=== PATIENT | male | born 1965 | race Caucasian/White ===

== ENCOUNTER 2018-01-31 09:35 | Emergency (ER) | payer BC ==
[2018-01-31 09:51] VITALS: RESP 18; TEMP 98.1
[2018-01-31] MEDS ORDERED: SODIUM CHLORIDE 0.9% 1,000 ML IV STA (10:26)
[2018-01-31] MEDS ORDERED: FAMOTIDINE 20 MG/2 ML VIAL IV STA (10:26)
[2018-01-31] MEDS ORDERED: ONDANSETRON 4 MG/2 ML VIAL IVP STA (10:26)
--- NOTE | 2018-01-31 10:28 | ED ---
General Adult HPI - General Chief complaint: Abdominal Pain Stated complaint: Vomiting Time Seen by Provider: 01/31/18 10:21 Source: patient, RN notes reviewed Mode of arrival: ambulatory Limitations: no limitations - History of Present Illness Initial comments: Patient 52-year-old male presented to the emergency room today with a chief complaint of increased nausea vomiting over last 3 days. Patient does admit to some abdominal pain throughout the abdomen from vomiting. He does admit that he has abdominal pain off and on over the last 6 months. States she's lost 12 pounds in approximately last 3 months. Patient does admit that today with vomiting. He saw small amount of blood. Patient states she's not been able to keep anything down the last 3 days. Patient states that at times feels pain radiating to the back. Patient denies any other complaints or symptoms. Patient denies any recent fever, chills, shortness of breath, chest pain, numbness or tingling, dysuria or hematuria, constipation or diarrhea, headaches or visual changes, or any other complaints. - Related Data Previous Rx's Medication Instructions Recorded Famotidine [Pepcid] 20 mg PO BID #20 tablet 01/31/18 Ondansetron Odt [Zofran ODT] 4 mg PO Q8HR PRN #20 tab 01/31/18 Allergies Allergy/AdvReac Type Severity Reaction Status Date / Time No Known Allergies Allergy Unverified 01/31/18 10:30 Review of Systems ROS Statement: Those systems with pertinent positive or pertinent negative responses have been documented in the HPI. ROS Other: All systems not noted in ROS Statement are negative. Past Medical History Past Medical History: No Reported History History of Any Multi-Drug Resistant Organisms: None Reported Past Surgical History: No Surgical Hx Reported Past Psychological History: No Psychological Hx Reported Smoking Status: Current every day smoker Past Alcohol Use History: None Reported Past Drug Use History: Marijuana General Exam - General Exam Comments Initial Comments: General: The patient is awake and alert, in no distress, and does not appear acutely ill. Eye: Pupils are equal, round and reactive to light, extra-ocular movements are intact. No nystagmus. There is normal conjunctiva bilaterally. No signs of icterus. Ears, nose, mouth and throat: There are moist mucous membranes and no oral lesions. Neck: The neck is supple, there is no tenderness or JVD. Cardiovascular: There is a regular rate and rhythm. No murmur, rub or gallop is appreciated. Respiratory: Lungs are clear to auscultation, respirations are non-labored, breath sounds are equal. No wheezes, stridor, rales, or rhonchi. Gastrointestinal: Abdomen soft on palpation. Patient does have tenderness greatest in epigastric with mild tenderness throughout quadrants. No rebound, guarding or CVA tenderness. Musculoskeletal: Normal ROM, no tenderness. Strength 5/5. Sensation intact. Pulses equal bilaterally 2+. Neurological: A&O x 3. CN II-XII intact, There are no obvious motor or sensory deficits. Coordination appears grossly intact. Speech is normal. Skin: Skin is warm and dry and no rashes or lesions are noted. Psychiatric: Cooperative, appropriate mood & affect, normal judgment. Limitations: no limitations Course Vital Signs 01/31/18 09:48 Temperature 98.1 F Pulse Rate 88 Respiratory 18 Rate Blood Pressure 151/91 O2 Sat by Pulse 98 Oximetry Medical Decision Making - Medical Decision Making Patient reexamined at this time shows no signs of distress. Admits that is feeling much better here in the emergency room after Zofran, Pepcid. Patient's labs been reviewed. Patient's CAT scan of the abdomen and pelvis is negative for any acute abnormality. Chest x-rays unremarkable. At this time patient will be discharged on continued on Zofran, Pepcid. He is advised follow-up with them physician and GI. He is advised return here to the emergency room symptoms increase worsen or for any other concerns. - Lab Data Result diagrams: 01/31/18 10:58 01/31/18 10:58 Lab Results 01/31/18 01/31/18 01/31/18 Range/Units 10:58 10:58 12:42 WBC 9.6 (3.8-10.6) k/uL RBC 5.83 (4.30-5.90) m/uL Hgb 17.5 (13.0-17.5) gm/dL Hct 52.1 (39.0-53.0) % MCV 89.3 (80.0-100.0) fL MCH 30.1 (25.0-35.0) pg MCHC 33.6 (31.0-37.0) g/dL RDW 12.5 (11.5-15.5) % Plt Count 227 (150-450) k/uL Neutrophils % 71 % Lymphocytes % 20 % Monocytes % 7 % Eosinophils % 1 % Basophils % 0 % Neutrophils # 6.8 (1.3-7.7) k/uL Lymphocytes # 1.9 (1.0-4.8) k/uL Monocytes # 0.7 (0-1.0) k/uL Eosinophils # 0.1 (0-0.7) k/uL Basophils # 0.0 (0-0.2) k/uL Sodium 139 (137-145) mmol/L Potassium 4.3 (3.5-5.1) mmol/L Chloride 101 (98-107) mmol/L Carbon Dioxide 26 (22-30) mmol/L Anion Gap 12 mmol/L BUN 18 (9-20) mg/dL Creatinine 1.06 (0.66-1.25) mg/dL Est GFR (CKD-EPI)AfAm >90 (>60 ml/min/1.73 sqM) Est GFR (CKD-EPI)NonAf 81 (>60 ml/min/1.73 sqM) Glucose 113 H (74-99) mg/dL Calcium 10.2 (8.4-10.2) mg/dL Total Bilirubin 1.2 (0.2-1.3) mg/dL AST 26 (17-59) U/L ALT 27 (21-72) U/L Alkaline Phosphatase 92 (38-126) U/L Total Protein 7.6 (6.3-8.2) g/dL Albumin 4.8 (3.5-5.0) g/dL Amylase 70 (30-110) U/L Lipase 105 (23-300) U/L Urine Color Yellow Urine Appearance Clear (Clear) Urine pH 7.0 (5.0-8.0) Urine Protein Negative (Negative) Urine Glucose (UA) Negative (Negative) Urine Blood Negative (Negative) Urine Nitrite Negative (Negative) Urine Bilirubin Negative (Negative) Urine Urobilinogen <2.0 (<2.0) mg/dL Ur Leukocyte Esterase Negative (Negative) Disposition Clinical Impression: Abdominal pain Disposition: HOME SELF-CARE Condition: Good Instructions: Abdominal Pain (ED) Additional Instructions: Please use medication as discussed. Please follow-up with GI/family doctor in the next 2 days of symptoms have not improved. Please return to emergency room if the symptoms increase or worsen or for any other concerns. Prescriptions: Famotidine [Pepcid] 20 mg PO BID #20 tablet Ondansetron Odt [Zofran ODT] 4 mg PO Q8HR PRN #20 tab PRN Reason: Nausea Is patient prescribed a controlled substance at d/c from ED?: No Referrals: Tylor Zapata MD [Primary Care Provider] - 1-2 days Jai Mistry MD [STAFF PHYSICIAN] - 1-2 days Time of Disposition: 13:02
[2018-01-31 11:16] LABS: Basophils % (A) 0 %; Eosinophils # (A) 0.1 k/uL (0-0.7); Eosinophils % (A) 1 %; HCT 52.1 % (39.0-53.0); HGB 17.5 gm/dL (13.0-17.5); Lymphocytes # (A) 1.9 k/uL (1.0-4.8); Lymphocytes % (A) 20 %; MCH 30.1 pg (25.0-35.0); MCHC 33.6 g/dL (31.0-37.0); MCV 89.3 fL (80.0-100.0); Mean Platelet Volume 8.3; Monocytes # (A) 0.7 k/uL (0-1.0); Monocytes % (A) 7 %; Neutrophils # (A) 6.8 k/uL (1.3-7.7); Neutrophils % (A) 71 %; Platelet Count 227 k/uL (150-450); RBC 5.83 m/uL (4.30-5.90); RDW 12.5 % (11.5-15.5); WBC 9.6 k/uL (3.8-10.6)
--- NOTE | 2018-01-31 11:19 | XR ---
EXAMINATION TYPE: XR chest 2V DATE OF EXAM: 01/31/2018 COMPARISON: NONE TECHNIQUE: PA and lateral views submitted. HISTORY: Pain FINDINGS: The lungs are clear and there is no pneumothorax, pleural effusion, or focal pneumonia. IMPRESSION: 1. No acute process.
[2018-01-31 11:26] LABS: ALT 27 U/L (21-72); AST 26 U/L (17-59); Albumin 4.8 g/dL (3.5-5.0); Alkaline Phosphatase 92 U/L (38-126); Amylase 70 U/L (30-110); Anion Gap 12 mmol/L; Blood Urea Nitrogen 18 mg/dL (9-20); Calcium 10.2 mg/dL (8.4-10.2); Carbon Dioxide 26 mmol/L (22-30); Chloride 101 mmol/L (98-107); Glucose 113 mg/dL (74-99); Lipase 105 U/L (23-300); Potassium 4.3 mmol/L (3.5-5.1); Sodium 139 mmol/L (137-145); Total Bilirubin 1.2 mg/dL (0.2-1.3); Total Protein 7.6 g/dL (6.3-8.2)
--- NOTE | 2018-01-31 11:57 | CT ---
EXAMINATION TYPE: CT abdomen pelvis w con DATE OF EXAM: 01/31/2018 COMPARISON: None HISTORY: Patient complains of epigastric pain. CT DLP: 368.4 mGycm CONTRAST: CT scan of the abdomen and pelvis is performed without Oral Contrast and with IV Contrast, patient in jected with 100 mL of Isovue 300. FINDINGS: LUNG BASES-: No visible nodule. No infiltrate. LIVER/GB: Mild fatty liver with areas of focal fatty sparing versus underlying hemangioma. No calcif ied gallstones. No space occupying hepatic lesion. Biliary tree is of normal caliber. PANCREAS: No inflammation. No distinct mass. SPLEEN: No splenic enlargement. No lesion seen. ADRENALS: No nodule. No thickening. KIDNEYS/BLADDER: No hydronephrosis. No nephrolithiasis. No distinct renal mass. Urinary bladder g rossly unremarkable. BOWEL: Normal appendix. Normal bowel caliber. No inflammation. GENITAL ORGANS: No gross abnormality. LYMPH NODES: No greater than 1cm abdominal or pelvic lymph nodes are appreciated. AORTA: No significant abnormality. OSSEOUS STRUCTURES: No significant abnormality is seen. OTHER: No significant additional abnormality is seen. IMPRESSION: 1. No acute process identified to account for the patient's symptoms.
[2018-01-31 12:54] LABS: Appearance,Urine Clear (Clear); Bilirubin,Urine Negative (Negative); Blood,Urine Negative (Negative); Color,Urine Yellow; Glucose,Urine (UA) Negative (Negative); Ketones,Urine 2+ (Negative); Leukocyte Esterase,Urine Negative (Negative); Nitrite,Urine Negative (Negative); Protein,Urine Negative (Negative); Urobilinogen,Urine <2.0 mg/dL (<2.0)
[2018-01-31 13:23] VITALS: BP 146/98; PULSE 64
[2018-01-31 13:24] LABS: Specific Gravity,Urine 1.049 (1.001-1.035)
== END 2018-01-31 13:23 | disposition home or self-care (01) ==
LOC: EC 09:35
DX: R10.84 Generalized abdominal pain (principal); R11.2 Nausea with vomiting, unspecified; F17.200 Nicotine dependence, unspecified, uncomplicated
CPT/HCPCS: 36415; 80053; 82150; 83690; 85025; 81003; 71046; 74177; 99284; 96374; 96375; 96361; J2405; Q9967

== ENCOUNTER 2019-07-07 05:35 | Inpatient (IN) | payer BC ==
[2019-07-07] MEDS ORDERED: SODIUM CHLORIDE 0.9% 1,000 ML IV STA (05:51)
[2019-07-07 06:06] LABS: Basophils % (A) 0 %; Eosinophils # (A) 0.1 k/uL (0-0.7); Eosinophils % (A) 1 %; HCT 37.1 % (39.0-53.0); HGB 12.3 gm/dL (13.0-17.5); Lymphocytes # (A) 3.2 k/uL (1.0-4.8); Lymphocytes % (A) 30 %; MCH 30.4 pg (25.0-35.0); MCHC 33.2 g/dL (31.0-37.0); MCV 91.6 fL (80.0-100.0); Mean Platelet Volume 9.1; Monocytes # (A) 0.7 k/uL (0-1.0); Monocytes % (A) 7 %; Neutrophils # (A) 6.4 k/uL (1.3-7.7); Neutrophils % (A) 60 %; Platelet Count 188 k/uL (150-450); RBC 4.05 m/uL (4.30-5.90); RDW 12.4 % (11.5-15.5); WBC 10.8 k/uL (3.8-10.6)
[2019-07-07 06:13] LABS: ALT 15 U/L (4-49); AST 19 U/L (17-59); African American GFR (CKD) >90 (>60 ml/min/1.73 sqM); Alkaline Phosphatase 52 U/L (38-126); Anion Gap 10 mmol/L; Blood Urea Nitrogen 35 mg/dL (9-20); Calcium 8.4 mg/dL (8.4-10.2); Carbon Dioxide 23 mmol/L (22-30); Chloride 102 mmol/L (98-107); Glucose 176 mg/dL (74-99); Magnesium 1.9 mg/dL (1.6-2.3); Non-African American GFR(CKD) 83 (>60 ml/min/1.73 sqM); Potassium 4.5 mmol/L (3.5-5.1); Sodium 135 mmol/L (137-145); Total Bilirubin 0.7 mg/dL (0.2-1.3); Total Protein 5.4 g/dL (6.3-8.2)
[2019-07-07 06:21] LABS: Prothrombin Time 10.1 sec (9.0-12.0)
[2019-07-07 06:25] LABS: Partial Thromboplastin Time 19.3 sec (22.0-30.0)
[2019-07-07 06:42] LABS: Amorphous Sediment,Urine Rare /hpf; Appearance,Urine Cloudy (Clear); Bilirubin,Urine Negative (Negative); Blood,Urine Negative (Negative); Color,Urine Yellow; Glucose,Urine (UA) Negative (Negative); Hyaline Casts,Urine 173 /lpf (0-2); Ketones,Urine Negative (Negative); Leukocyte Esterase,Urine Negative (Negative); Mucus,Urine Rare /hpf; Nitrite,Urine Negative (Negative); PH, Urine 6.5 (5.0-8.0); Protein,Urine Negative (Negative); RBC,Urine 1 /hpf (0-5); Specific Gravity,Urine 1.018 (1.001-1.035); Urobilinogen,Urine <2.0 mg/dL (<2.0); WBC,Urine 1 /hpf (0-5)
--- NOTE | 2019-07-07 06:50 | XR ---
EXAMINATION TYPE: XR chest 2V DATE OF EXAM: 07/07/2019 COMPARISON: 01/31/2018 HISTORY: Abdominal pain TECHNIQUE: 2 views FINDINGS: Heart and mediastinum are normal. Lungs are clear. Diaphragm is normal. Bony thorax appears normal. There are chest leads. IMPRESSION: Normal chest. No change.
--- NOTE | 2019-07-07 06:53 | ED ---
General Adult HPI - General Chief complaint: Syncope Stated complaint: Syncope Time Seen by Provider: 07/07/19 05:51 Source: patient, EMS, RN notes reviewed Mode of arrival: EMS Limitations: no limitations - History of Present Illness Initial comments: This a 53-year-old male presents emergency Department chief complaint of nausea vomiting, dehydration. Patient states she's been sick since Wednesday with persistent vomiting daily. Patient states he cannot keep anything down. He states he feels very weak, run down. Patient reportedly passed out at home today. Patient states that he felt that his pain gets sick heard a thud in the hallway and was found on the ground. Patient was very confused for short period time. Patient denies any chest pain, shortness breath, headache, dizziness, neck pain. Patient does admit that he's been having a moderate amount of left-sided abdominal pain which not improving he is very thirsty, increased urination. Patient does not have significant past medical history though he states he does not go to her primary care physician - Related Data Home Medications Medication Instructions Recorded Confirmed Ibuprofen [Advil] 400 mg PO Q6H PRN 07/07/19 07/07/19 Allergies Allergy/AdvReac Type Severity Reaction Status Date / Time No Known Allergies Allergy Verified 07/07/19 07:50 Review of Systems ROS Statement: Those systems with pertinent positive or pertinent negative responses have been documented in the HPI. ROS Other: All systems not noted in ROS Statement are negative. Past Medical History Past Medical History: No Reported History History of Any Multi-Drug Resistant Organisms: None Reported Past Surgical History: No Surgical Hx Reported Past Psychological History: No Psychological Hx Reported Smoking Status: Current every day smoker Past Alcohol Use History: None Reported Past Drug Use History: Marijuana General Exam General appearance: alert, in no apparent distress Head exam: Present: atraumatic, normocephalic, normal inspection Eye exam: Present: normal appearance, PERRL, EOMI. Absent: scleral icterus, conjunctival injection, periorbital swelling ENT exam: Present: mucous membranes dry. Absent: normal exam, mucous membranes moist Neck exam: Present: normal inspection. Absent: tenderness, meningismus, ly mphadenopathy Respiratory exam: Present: normal lung sounds bilaterally. Absent: respiratory distress, wheezes, rales, rhonchi, stridor Cardiovascular Exam: Present: regular rate, normal rhythm, normal heart sounds. Absent: systolic murmur, diastolic murmur, rubs, gallop, clicks GI/Abdominal exam: Present: soft, tenderness (Mild left-sided abdominal tenderness), normal bowel sounds. Absent: distended, guarding, rebound, rigid Course Vital Signs 07/07/19 05:48 Temperature 97.5 F L Pulse Rate 82 Respiratory 16 Rate Blood Pressure 132/84 O2 Sat by Pulse 98 Oximetry Medical Decision Making - Medical Decision Making 53-year-old male presented for abdominal pain. Patient's found to have fecal impaction, dilated bowel with constipation, inflammatory or infectious. Patient does have elevated lactic acid at 3.8 home major signs of dehydration or states he's not been a bleeding for over one week. Patient will be admitted for rectal bleeding has had 2 bowel movements emergency from with bright red blood. Patient will be hydrated with GI consult. - Lab Data Result diagrams: 07/07/19 05:46 07/07/19 05:46 Lab Results 07/07/19 07/07/19 07/07/19 Range/Units 05:46 05:46 05:46 WBC 10.8 H (3.8-10.6) k/uL RBC 4.05 L (4.30-5.90) m/uL Hgb 12.3 L (13.0-17.5) gm/dL Hct 37.1 L (39.0-53.0) % MCV 91.6 (80.0-100.0) fL MCH 30.4 (25.0-35.0) pg MCHC 33.2 (31.0-37.0) g/dL RDW 12.4 (11.5-15.5) % Plt Count 188 (150-450) k/uL Neutrophils % 60 % Lymphocytes % 30 % Monocytes % 7 % Eosinophils % 1 % Basophils % 0 % Neutrophils # 6.4 (1.3-7.7) k/uL Lymphocytes # 3.2 (1.0-4.8) k/uL Monocytes # 0.7 (0-1.0) k/uL Eosinophils # 0.1 (0-0.7) k/uL Basophils # 0.0 (0-0.2) k/uL PT 10.1 (9.0-12.0) sec INR 1.0 (<1.2) APTT 19.3 L (22.0-30.0) sec Sodium 135 L (137-145) mmol/L Potassium 4.5 (3.5-5.1) mmol/L Chloride 102 (98-107) mmol/L Carbon Dioxide 23 (22-30) mmol/L Anion Gap 10 mmol/L BUN 35 H (9-20) mg/dL Creatinine 1.03 (0.66-1.25) mg/dL Est GFR (CKD-EPI)AfAm >90 (>60 ml/min/1.73 sqM) Est GFR (CKD-EPI)NonAf 83 (>60 ml/min/1.73 sqM) Glucose 176 H (74-99) mg/dL Plasma Lactic Acid Luis (0.7-2.0) mmol/L Calcium 8.4 (8.4-10.2) mg/dL Magnesium 1.9 (1.6-2.3) mg/dL Total Bilirubin 0.7 (0.2-1.3) mg/dL AST 19 (17-59) U/L ALT 15 (4-49) U/L Alkaline Phosphatase 52 (38-126) U/L Troponin I (0.000-0.034) ng/mL Total Protein 5.4 L (6.3-8.2) g/dL Albumin 3.0 L (3.5-5.0) g/dL Urine Color Urine Appearance (Clear) Urine pH (5.0-8.0) Ur Specific [place] (1.001-1.035) Urine Protein (Negative) Urine Glucose (UA) (Negative) Urine Ketones (Negative) Urine Blood (Negative) Urine Nitrite (Negative) Urine Bilirubin (Negative) Urine Urobilinogen (<2.0) mg/dL Ur Leukocyte Esterase (Negative) Urine RBC (0-5) /hpf Urine WBC (0-5) /hpf Amorphous Sediment (None) /hpf Hyaline Casts (0-2) /lpf Urine Mucus (None) /hpf 07/07/19 07/07/19 07/07/19 Range/Units 05:46 05:46 06:20 WBC (3.8-10.6) k/uL RBC (4.30-5.90) m/uL Hgb (13.0-17.5) gm/dL Hct (39.0-53.0) % MCV (80.0-100.0) fL MCH (25.0-35.0) pg MCHC (31.0-37.0) g/dL RDW (11.5-15.5) % Plt Count (150-450) k/uL Neutrophils % % Lymphocytes % % Monocytes % % Eosinophils % % Basophils % % Neutrophils # (1.3-7.7) k/uL Lymphocytes # (1.0-4.8) k/uL Monocytes # (0-1.0) k/uL Eosinophils # (0-0.7) k/uL Basophils # (0-0.2) k/uL PT (9.0-12.0) sec INR (<1.2) APTT (22.0-30.0) sec Sodium (137-145) mmol/L Potassium (3.5-5.1) mmol/L Chloride (98-107) mmol/L Carbon Dioxide (22-30) mmol/L Anion Gap mmol/L BUN (9-20) mg/dL Creatinine (0.66-1.25) mg/dL Est GFR (CKD-EPI)AfAm (>60 ml/min/1.73 sqM) Est GFR (CKD-EPI)NonAf (>60 ml/min/1.73 sqM) Glucose (74-99) mg/dL Plasma Lactic Acid Luis 3.8 H* (0.7-2.0) mmol/L Calcium (8.4-10.2) mg/dL Magnesium (1.6-2.3) mg/dL Total Bilirubin (0.2-1.3) mg/dL AST (17-59) U/L ALT (4-49) U/L Alkaline Phosphatase (38-126) U/L Troponin I <0.012 (0.000-0.034) ng/mL Total Protein (6.3-8.2) g/dL Albumin (3.5-5.0) g/dL Urine Color Yellow Urine Appearance Cloudy (Clear) Urine pH 6.5 (5.0-8.0) Ur Specific [place] 1.018 (1.001-1.035) Urine Protein Negative (Negative) Urine Glucose (UA) Negative (Negative) Urine Ketones Negative (Negative) Urine Blood Negative (Negative) Urine Nitrite Negative (Negative) Urine Bilirubin Negative (Negative) Urine Urobilinogen <2.0 (<2.0) mg/dL Ur Leukocyte Esterase Negative (Negative) Urine RBC 1 (0-5) /hpf Urine WBC 1 (0-5) /hpf Amorphous Sediment Rare H (None) /hpf Hyaline Casts 173 H (0-2) /lpf Urine Mucus Rare H (None) /hpf Disposition Clinical Impression: Rectal bleeding, Abdominal pain, Lactic acidosis, Nausea & vomiting, Syncope Disposition: ADMITTED IP TO THIS HOSP Condition: Fair Referrals: None,Stated [Primary Care Provider] - 1-2 days
--- NOTE | 2019-07-07 07:25 | CT ---
EXAMINATION TYPE: CT abdomen pelvis w con DATE OF EXAM: 07/07/2019 COMPARISON: 01/31/2018 HISTORY: Syncope, Abdominal pain CT DLP: 687.5 mGycm Automated exposure control for dose reduction was used. TECHNIQUE: Helical acquisition of images was performed from the lung bases through the pelvis. CONTRAST: Performed without Oral Contrast and with IV Contrast, patient injected with 100 ml mL of Isovue 300. FINDINGS: LUNG BASES: No significant abnormality is appreciated. LIVER/GB: 3.0 cm subcapsular mass is seen within segment IVb of the liver with ill-defined margins. U nderlying hepatic steatosis is mild limiting evaluation of hepatic masses. Gallbladder is contracted. PANCREAS: No significant abnormality is seen. SPLEEN: No significant abnormality is seen. ADRENALS: No significant abnormality is seen. KIDNEYS: Kidneys enhance and excrete symmetrically without hydronephrosis. FREE AIR: No free air is visualized. ADENOPATHY: No greater than 1 cm short axis lymph node seen in the abdomen or pelvis. OSSEOUS STRUCTURES: Minimal degenerative changes of the spine. BOWEL: The rectum is dilated to 6.7 cm with rectal fecal stasis. Less well formed stool is seen thro ughout the prominent sigmoid colon. Overall evaluation of the bowel is limited without contrast. Air- fluid levels are seen within the remainder of the stool-filled colon. Numerous loops of small bowel t hroughout the abdomen demonstrate small bowel wall thickening up to 1 cm. OTHER: Mild atheromatous changes of the abdominal aorta and its branches. IMPRESSION: 1. RECTAL FECAL IMPACTION DILATING THE RECTUM UP TO 6.5 CM WITH FECAL DEBRIS THROUGHOUT THE REMAINDER OF THE ENTIRETY OF THE COLON. NO OTHER PORTIONS OF THE COLON ARE DILATED. BOWEL WALL THICKENING THRO UGHOUT NUMEROUS LOOPS OF SMALL BOWEL, MOST COMMONLY SEEN IN INFECTIOUS OR INFLAMMATORY ENTERITIS. OTH ER ETIOLOGIES ARE LESS LIKELY SUCH SHOCK BOWEL, HYPOPROTEINEMIA, OR AUTOIMMUNE DISORDERS. 2. ARTERIALLY ENHANCING 3 CM HEPATIC MASS APPEARS SLIGHTLY ENLARGED FROM 2018. ALTHOUGH THIS IS FAVOR ED TO REPRESENT HEMANGIOMA ENHANCED MRI ABDOMEN COULD DEFINITIVELY CHARACTERIZE THIS LESION.
[2019-07-07] MEDS ORDERED: NALOXONE 0.4 MG/ML 1 ML VIAL IV PRN (08:36)
[2019-07-07] MEDS ORDERED: MORPHINE SULFATE 4 MG/ML SYRINGE IVP PRN (10:27)
[2019-07-07] MEDS: ONDANSETRON 4 MG/2 ML VIAL IVP PRN ×2 (10:45→20:37)
[2019-07-07] MEDS: SODIUM CHLORIDE 0.9% 1,000 ML IV SCH ×2 (10:52→18:53)
[2019-07-07] MEDS ORDERED: MAGNESIUM CITRATE 296 ML BOTTLE PO ONE (12:45)
[2019-07-07] MEDS ORDERED: POLYETHYLENE GLYCOL 3350 17 GM POWD.PACK PO PRN (12:58)
[2019-07-07] MEDS ORDERED: IPRATROPIUM-ALBUTEROL 3 ML NEB INHALATION PRN (13:01)
--- NOTE | 2019-07-07 13:01 | P.HPIM ---
History of Present Illness 53-year-old male came in with nausea vomiting dehydration and constipation and patient denied using any opiates for pain. Patient takes Motrin for his back pain patient was complaining of back pain without any tingling numbness in both in the legs. Patient is found to be severely constipated later patient was given medications for constipation patient and it up moving bowel twice patient had significant amount of blood with 1 bowel movement followed by the second one where he had a small amount of blood. Patient apparently had a syncopal episode which the patient did not complain to me about, patient will be in the hospital anyways because of which a cardiogram will leave her on telemetry, EKG did not show any significant abnormality patient will be monitored overnight. Review of Systems REVIEW OF SYSTEMS: CONSTITUTIONAL: No fever, no malaise, no fatigue. HEENT: No recent visual problems or hearing problems. Denied any sore throat. CARDIOVASCULAR: No chest pain, orthopnea, PND, no palpitations. PULMONARY: No shortness of breath, no cough, no hemoptysis. GASTROINTESTINAL: As mentioned in HPI NEUROLOGICAL: No headaches, no weakness, no numbness. HEMATOLOGICAL: Denies any bleeding or petechiae. GENITOURINARY: Denies any burning micturition, frequency, or urgency. MUSCULOSKELETAL/RHEUMATOLOGICAL: Denies any joint pain, swelling, or any muscle pain. ENDOCRINE: Denies any polyuria or polydipsia. The rest of the 14-point review of systems is negative. Past Medical History Past Medical History: No Reported History Additional Past Medical History / Comment(s): Chronic low back pain History of Any Multi-Drug Resistant Organisms: None Reported Past Surgical History: No Surgical Hx Reported Past Anesthesia/Blood Transfusion Reactions: Unable to Obtain Additional Past Anesthesia/Blood Transfusion Reaction / Comment(s): Pt has never had surgery Smoking Status: Current every day smoker - Past Family History Father History Unknown: Yes Additional Family Medical History / Comment(s): Pt has not had contact with his father for years. Mother History Unknown: Yes Additional Family Medical History / Comment(s): Pt has not had contact with his mother in 20 yrs. Medications and Allergies Home Medications Medication Instructions Recorded Confirmed Type Ibuprofen [Advil] 400 mg PO Q6H PRN 07/07/19 07/07/19 History Allergies Allergy/AdvReac Type Severity Reaction Status Date / Time No Known Allergies Allergy Verified 07/07/19 07:50 Physical Exam Vitals: Vital Signs Temp Pulse Pulse Resp BP BP Pulse Ox 07/07/19 11:45 98.4 F 97 14 118/77 07/07/19 09:21 98.7 F 83 17 106/72 100 07/07/19 05:48 97.5 F L 82 16 132/84 98 Intake and Output 07/06/19 07/07/19 07/07/19 22:59 06:59 14:59 Other: Weight 70.307 kg 70.307 kg PHYSICAL EXAMINATION: GENERAL: The patient is alert and oriented x3, not in any acute distress. Well developed, well nourished. HEENT: Pupils are round and equally reacting to light. EOMI. No scleral icterus. No conjunctival pallor. Normocephalic, atraumatic. No pharyngeal erythema. No thyromegaly. CARDIOVASCULAR: S1 and S2 present. No murmurs, rubs, or gallops. PULMONARY: Chest is clear to auscultation, no wheezing or crackles. ABDOMEN: Soft, nontender, nondistended, normoactive bowel sounds. No palpable organomegaly. MUSCULOSKELETAL: No joint swelling or deformity. EXTREMITIES: No cyanosis, clubbing, or pedal edema. NEUROLOGICAL: Gross neurological examination did not reveal any focal deficits. SKIN: No rashes. Results CBC & Chem 7: 07/07/19 05:46 07/07/19 05:46 Labs: Abnormal Lab Results - Last 24 Hours (Table) 07/07/19 07/07/19 07/07/19 Range/Units 05:46 05:46 05:46 WBC 10.8 H (3.8-10.6) k/uL RBC 4.05 L (4.30-5.90) m/uL Hgb 12.3 L (13.0-17.5) gm/dL Hct 37.1 L (39.0-53.0) % APTT 19.3 L (22.0-30.0) sec Sodium 135 L (137-145) mmol/L BUN 35 H (9-20) mg/dL Glucose 176 H (74-99) mg/dL Plasma Lactic Acid Luis (0.7-2.0) mmol/L Total Protein 5.4 L (6.3-8.2) g/dL Albumin 3.0 L (3.5-5.0) g/dL Amorphous Sediment (None) /hpf Hyaline Casts (0-2) /lpf Urine Mucus (None) /hpf 07/07/19 07/07/19 Range/Units 05:46 06:20 WBC (3.8-10.6) k/uL RBC (4.30-5.90) m/uL Hgb (13.0-17.5) gm/dL Hct (39.0-53.0) % APTT (22.0-30.0) sec Sodium (137-145) mmol/L BUN (9-20) mg/dL Glucose (74-99) mg/dL Plasma Lactic Acid Luis 3.8 H* (0.7-2.0) mmol/L Total Protein (6.3-8.2) g/dL Albumin (3.5-5.0) g/dL Amorphous Sediment Rare H (None) /hpf Hyaline Casts 173 H (0-2) /lpf Urine Mucus Rare H (None) /hpf Thrombosis Risk Factor Assmnt - Choose All That Apply Any of the Below Risk Factors Present?: Yes Each Factor Represents 1 point: Age 41-60 years Other Risk Factors: No Other congenital or acquired thrombophilia - If yes, enter type in comment: No Thrombosis Risk Factor Assessment Total Risk Factor Score: 1 Thrombosis Risk Factor Assessment Level: Low Risk Assessment and Plan Plan: -Abdominal pain secondary to constipation which resolved -Lower GI bleed secondary to hemorrhoidal bleed from constipation we'll monitor him overnight -Possibly of syncope. Obtain echo monitor her overnight patient may have had vasovagal event because of his severe constipation Chronic low back pain on morphine will be discontinued and patient was started on Toradol -Nicotine abuse: Counseling was provided patient has slight wheeze on exam, was never diagnosed with COPD -
[2019-07-07] MEDS: traMADol 50 MG TAB PO PRN ×2 (18:51→23:28)
--- NOTE | 2019-07-08 00:09 | P.CONS ---
History of Present Illness - Reason for Consult Consult date: 07/07/19 Constipation, abnormal computed tomography scan Requesting physician: Alpa Avila - Chief Complaint Abdominal pain, nausea vomiting - History of Present Illness 53-year-old male with a medical history significant for chronic low back pain who presented to the hospital with nausea, vomiting and constipation. The patient reports that in general he is had some abdominal pain on and off over the past few years. He reports abdominal pain predominantly in the lower abdomen. This is worsened recently. He also reports 3-4 days of nausea and vomiting as well as constipation which has worsened over the past week. He denies any blood per rectum prior to presentation but does report not having a bowel movement for approximately one week. He denies any new medications or opioid medications. He does take Motrin as needed for pain. After presentation he did see some maroon-colored stool. Laboratory evaluation was significant for WBC 8, hemoglobin 12.3, platelet count 180,000, INR 1.0. He did have a computed tomography scan of the abdomen which showed fecal stasis, small bowel distention and a 6.7 cm rectum. Review of Systems REVIEW OF SYSTEMS: CONSTITUTIONAL: Denies any fevers, chills, weight change or fatigue. CARDIOVASCULAR: Denies any chest pain, palpitations high or low blood pressures RESPIRATORY: Denies any shortness of breath, hemoptysis or cough. GENITOURINARY: No dysuria or hematuria. MUSCULOSKELETAL: No weakness reported. SKIN: Denies any new rashes or lesions, jaundice or pallor. PSYCHIATRIC: Denies any depression or anxiety. NEUROLOGY: Denies headache, denies any new focal deficits. EARS/NOSE/THROAT: No recent hearing change, congestion, nasal discharge or sore throat. EYES: No pain in eyes, discharge or change in vision. GASTROINTESTINAL: As per HPI. Past Medical History Past Medical History: No Reported History Additional Past Medical History / Comment(s): Chronic low back pain History of Any Multi-Drug Resistant Organisms: None Reported Past Surgical History: No Surgical Hx Reported Past Anesthesia/Blood Transfusion Reactions: Unable to Obtain Additional Past Anesthesia/Blood Transfusion Reaction / Comm: Pt has never had surgery Smoking Status: Current every day smoker - Past Family History Father History Unknown: Yes Additional Family Medical History / Comment(s): Pt has not had contact with his father for years. Mother History Unknown: Yes Additional Family Medical History / Comment(s): Pt has not had contact with his mother in 20 yrs. Medications and Allergies Home Medications Medication Instructions Recorded Confirmed Type Ibuprofen [Advil] 400 mg PO Q6H PRN 07/07/19 07/07/19 History Allergies Allergy/AdvReac Type Severity Reaction Status Date / Time No Known Allergies Allergy Verified 07/07/19 07:50 Physical Exam Vitals: Vital Signs Temp Pulse Pulse Resp BP BP Pulse Ox 07/07/19 11:45 98.4 F 97 14 118/77 07/07/19 09:21 98.7 F 83 17 106/72 100 07/07/19 05:48 97.5 F L 82 16 132/84 98 Intake and Output 07/06/19 07/07/19 07/07/19 22:59 06:59 14:59 Other: Weight 70.307 kg 70.307 kg On physical examination, patient appears comfortable in no apparent distress. HEAD: Normocephalic, atraumatic. EYES: No scleral icterus. No conjunctival injection. MOUTH: No lesions, tongue midline. NECK: Trachea midline, no gross abnormalities. CHEST: Clear to auscultation with no wheezing or rhonchi appreciated. HEART: Regular rate and rhythm. ABDOMEN: Soft, obese. Bowel sounds are positive. No organomegaly. No guarding or rigidity. EXTREMITIES: No pedal edema. SKIN: No rashes, no jaundice. NEUROLOGIC: Alert and oriented x3. No focal deficits. Results CBC & Chem 7: 07/07/19 05:46 07/07/19 05:46 Labs: Abnormal Lab Results - Last 24 Hours (Table) 07/07/19 07/07/19 07/07/19 Range/Units 05:46 05:46 05:46 WBC 10.8 H (3.8-10.6) k/uL RBC 4.05 L (4.30-5.90) m/uL Hgb 12.3 L (13.0-17.5) gm/dL Hct 37.1 L (39.0-53.0) % APTT 19.3 L (22.0-30.0) sec Sodium 135 L (137-145) mmol/L BUN 35 H (9-20) mg/dL Glucose 176 H (74-99) mg/dL Plasma Lactic Acid Luis (0.7-2.0) mmol/L Total Protein 5.4 L (6.3-8.2) g/dL Albumin 3.0 L (3.5-5.0) g/dL Amorphous Sediment (None) /hpf Hyaline Casts (0-2) /lpf Urine Mucus (None) /hpf 07/07/19 07/07/19 Range/Units 05:46 06:20 WBC (3.8-10.6) k/uL RBC (4.30-5.90) m/uL Hgb (13.0-17.5) gm/dL Hct (39.0-53.0) % APTT (22.0-30.0) sec Sodium (137-145) mmol/L BUN (9-20) mg/dL Glucose (74-99) mg/dL Plasma Lactic Acid Luis 3.8 H* (0.7-2.0) mmol/L Total Protein (6.3-8.2) g/dL Albumin (3.5-5.0) g/dL Amorphous Sediment Rare H (None) /hpf Hyaline Casts 173 H (0-2) /lpf Urine Mucus Rare H (None) /hpf CT scan - abdomen: report reviewed (Computed tomography scan of the abdomen with findings of fecal stasis and dilation of the rectum measuring 6.7 cm.) Assessment and Plan (1) Abdominal pain Narrative/Plan: 53-year-old male with chronic lower back pain who presented to the hospital due to nausea, vomiting and abdominal pain. Found to have fecal stasis and reporting one week of constipation. He also reported some associated rectal bleeding. Hemoglobin has remained normal. Patient started on a bowel regimen in the hospital. Current Visit: Yes Status: Acute Code(s): R10.9 - UNSPECIFIED ABDOMINAL PAIN SNOMED Code(s): 18626338 (2) Nausea & vomiting Current Visit: Yes Status: Acute Code(s): R11.2 - NAUSEA WITH VOMITING, UNSPECIFIED SNOMED Code(s): 40697006 (3) Rectal bleeding Current Visit: Yes Status: Acute Code(s): K62.5 - HEMORRHAGE OF ANUS AND RECTUM SNOMED Code(s): 32694099 Plan: Supportive care Okay for diet Order enema ordered Magnesium citrate ordered X-ray abdomen ordered for tomorrow morning to evaluate stool burden Would recommend patient have colonoscopy in 4-6 weeks for further evaluation Okay for discharge from gastroenterology if patient is feeling better and x-ray is improved tomorrow and otherwise medically stable Thank you for allowing us to participate in the care of the patient
[2019-07-08] MEDS: traMADol 50 MG TAB PO PRN (05:37)
[2019-07-08] MEDS: SODIUM CHLORIDE 0.9% 1,000 ML IV SCH ×2 (05:37→15:54)
--- NOTE | 2019-07-08 07:22 | XR ---
EXAMINATION TYPE: XR abdomen 2V , 3 VIEWS DATE OF EXAM ORDERED: 07/08/2019 HISTORY: fecal stasis. COMPARISON: None. FINDINGS: Lung bases are clear. Within the abdomen, the abdominal gas pattern is normal. There is no evidence of obstruction or free air. There is mild distention of the bladder. There is no significant fecal stasis identified. IMPRESSION: NO ACUTE INTRA-ABDOMINAL ABNORMALITY.
[2019-07-08 09:15] LABS: Glucose,Whole Blood 124 mg/dL (75-99)
[2019-07-08 09:40] LABS: Basophils % (A) 0 %; Eosinophils # (A) 0.1 k/uL (0-0.7); Eosinophils % (A) 1 %; Lymphocytes # (A) 3.2 k/uL (1.0-4.8); Lymphocytes % (A) 35 %; MCH 31.6 pg (25.0-35.0); MCV 95.6 fL (80.0-100.0); Mean Platelet Volume 9.4; Monocytes # (A) 0.6 k/uL (0-1.0); Monocytes % (A) 7 %; Neutrophils # (A) 5.1 k/uL (1.3-7.7); Neutrophils % (A) 55 %; Platelet Count 147 k/uL (150-450); RDW 12.8 % (11.5-15.5); WBC 9.1 k/uL (3.8-10.6)
[2019-07-08 09:53] LABS: AST 21 U/L (17-59); African American GFR (CKD) >90 (>60 ml/min/1.73 sqM); Albumin 2.1 g/dL (3.5-5.0); Alkaline Phosphatase 33 U/L (38-126); Anion Gap 10 mmol/L; Blood Urea Nitrogen 28 mg/dL (9-20); Carbon Dioxide 19 mmol/L (22-30); Chloride 107 mmol/L (98-107); Glucose 176 mg/dL (74-99); Magnesium 2.4 mg/dL (1.6-2.3); Non-African American GFR(CKD) 81 (>60 ml/min/1.73 sqM); Potassium 3.9 mmol/L (3.5-5.1); Sodium 136 mmol/L (137-145); Total Bilirubin 0.5 mg/dL (0.2-1.3)
[2019-07-08 10:01] LABS: HCT 19.1 % (39.0-53.0); HGB 6.3 gm/dL (13.0-17.5)
[2019-07-08 10:21] LABS: ALT 19 U/L (4-49)
[2019-07-08 10:24] LABS: Glucose,Whole Blood 178 mg/dL (75-99)
[2019-07-08] MEDS: PANTOPRAZOLE 40 MG/10 ML VIAL IVP SCH ×2 (10:55→21:28)
--- NOTE | 2019-07-08 13:36 | P.CNPUL ---
History of Present Illness Consult date: 07/08/19 Reason for consult: other (GI bleeding requiring transfer to the ICU.) Chief complaint: nausea vomiting and constipation. History of present illness: this is a 53-year-old white male with history of chronic low back pain related to work injury. Patient is on significant amount of nonsteroidal anti- inflammatory drugs which she takes on a daily basis to relieve his back pain. Patient had no previous history of gastric ulcer disease. No previous history of GI bleeding. He presented to the ER mostly with intermittent episodes of nausea vomiting and constipation for the last 1 week. Patient was also describing some vague lower abdominal pain. And upon evaluation the patient was felt to be constipated. He was given laxatives, and he felt much better after he had a bowel movement. However early this morning, the patient had an episode of significant emesis, bright red blood emesis and later was coffee-ground. His hemoglobin dropped almost 6 g from the time of admission. Hence arrangements were made for the patient be transferred to the ICU, and I was asked to see him on consultation. Blood was ordered. Fluids were given. Protonix was ordered. GI consultation was done, and he may require EGD today. Considering the amount of bleeding within a very short period of time, I did recommend surgical consultation for backup in case his condition gets much worse.during my evaluation, the patient was hemodynamically stable. He was having intermittent episodes of dark stools, but no active emesis. Review of Systems CONSTITUTIONAL: denies weight loss denies fever or chills.. CARDIOVASCULAR: denies chest pain or syncope or palpitations RESPIRATORY: denies cough wheezing or shortness of breath. GENITOURINARY: denies dysuria frequency urgency or hematuria. MUSCULOSKELETAL: denies weakness or limitation in range of motion, however he has chronic low back pain. SKIN: denies pruritus, denies rashes.. PSYCHIATRIC: denies history of depression. NEUROLOGY: low back pain/chronic. EARS/NOSE/THROAT: denies any earache sore throat or headache. EYES: denies diplopia, no blurred vision. GASTROINTESTINAL: as already mentioned in HPI. Past Medical History Past Medical History: No Reported History Additional Past Medical History / Comment(s): Chronic low back pain History of Any Multi-Drug Resistant Organisms: None Reported Past Surgical History: No Surgical Hx Reported Past Anesthesia/Blood Transfusion Reactions: Unable to Obtain Additional Past Anesthesia/Blood Transfusion Reaction / Comment(s): Pt has never had surgery Smoking Status: Current every day smoker - Past Family History Father History Unknown: Yes Additional Family Medical History / Comment(s): Pt has not had contact with his father for years. Mother History Unknown: Yes Additional Family Medical History / Comment(s): Pt has not had contact with his mother in 20 yrs. Medications and Allergies Home Medications Medication Instructions Recorded Confirmed Type Ibuprofen [Advil] 400 mg PO Q6H PRN 07/07/19 07/07/19 History Allergies Allergy/AdvReac Type Severity Reaction Status Date / Time No Known Allergies Allergy Verified 07/07/19 07:50 Physical Exam Vitals: Vital Signs Temp Pulse Pulse Resp BP BP Pulse Ox 07/08/19 13:00 89 20 109/58 95 07/08/19 12:40 98.1 F 88 18 89/42 98 07/08/19 12:30 93 20 94/52 96 07/08/19 12:10 98.3 F 94 18 105/46 97 07/08/19 12:00 97.9 F 97 17 112/54 95 07/08/19 11:30 93 13 123/66 95 07/08/19 11:00 105 H 15 106/58 97 07/08/19 10:30 103 H 15 121/61 99 07/08/19 08:23 98.3 F 120 H 16 107/61 94 L 07/08/19 04:35 98.2 F 90 16 109/75 99 07/07/19 23:30 97.6 F 89 16 124/73 99 07/07/19 20:15 98.8 F 77 18 115/66 97 07/07/19 15:37 81 17 99/61 97 Intake and Output 07/07/19 07/08/19 07/08/19 22:59 06:59 14:59 Intake Total 360 300 Balance 360 300 Intake: IV 300 Sodium Chloride 0.9% 1, 300 000 ml @ 100 mls/hr IV . Q10H [facility] Rx#:[id number] Oral 360 Blood Product 0 Rc As-1 Unit 0 [id number] Other: Voiding Method Toilet Toilet Urinal # Voids 2 3 Weight 68.6 kg Physical Exam: Revealed a 53-year-old white male in no distress. Head: Atraumatic normocephalic. HEENT:[Neck is supple.] [No neck masses.] [No thyromegaly.] [No JVD.]throat is clear. PERRLA, EOMI, Chest: [Clear throughout, no crackles, no rhonchi, no wheezes.] Cardiac Exam: [Normal S1 and S2, no S3 gallop, no murmur.] Abdomen: [Soft, nontender, no megaly, no rebound, no guarding, normal bowel sounds.] Extremities: [No clubbing, no edema, no cyanosis.] Neurological Exam: [No focal neurologic deficit.]alert oriented 3. Psychiatric: Normal mood and normal affect and normal mental status examination. Skin: No rashes. Lymphatics: No lymphadenopathy. Results - Laboratory Findings CBC and BMP: 07/08/19 09:20 07/08/19 09:20 PT/INR, D-dimer PT 10.1 sec (9.0-12.0) 07/07/19 05:46 INR 1.0 (<1.2) 07/07/19 05:46 Abnormal lab findings: Abnormal Labs 07/07/19 07/07/19 07/07/19 05:46 05:46 05:46 WBC 10.8 H RBC 4.05 L Hgb 12.3 L Hct 37.1 L Plt Count APTT 19.3 L Sodium 135 L Carbon Dioxide BUN 35 H Glucose 176 H POC Glucose (mg/dL) Plasma Lactic Acid Luis Calcium Magnesium Alkaline Phosphatase Total Protein 5.4 L Albumin 3.0 L Amorphous Sediment Hyaline Casts Urine Mucus Crossmatch 07/07/19 07/07/19 07/08/19 05:46 06:20 09:00 WBC RBC Hgb Hct Plt Count APTT Sodium Carbon Dioxide BUN Glucose POC Glucose (mg/dL) 124 H Plasma Lactic Acid Luis 3.8 H* Calcium Magnesium Alkaline Phosphatase Total Protein Albumin Amorphous Sediment Rare H Hyaline Casts 173 H Urine Mucus Rare H Crossmatch 07/08/19 07/08/19 07/08/19 09:20 09:20 09:20 WBC RBC 2.00 L Hgb 6.3 L* D Hct 19.1 L* Plt Count 147 L APTT Sodium 136 L Carbon Dioxide 19 L BUN 28 H Glucose 176 H POC Glucose (mg/dL) Plasma Lactic Acid Luis Calcium 7.0 L Magnesium 2.4 H Alkaline Phosphatase 33 L Total Protein 4.0 L Albumin 2.1 L Amorphous Sediment Hyaline Casts Urine Mucus Crossmatch See Detail 07/08/19 10:22 WBC RBC Hgb Hct Plt Count APTT Sodium Carbon Dioxide BUN Glucose POC Glucose (mg/dL) 178 H Plasma Lactic Acid Luis Calcium Magnesium Alkaline Phosphatase Total Protein Albumin Amorphous Sediment Hyaline Casts Urine Mucus Crossmatch Assessment and Plan Assessment: impression: 1:Upper GI bleeding, most likely secondary to peptic ulcer disease. Most likely secondary to chronic use of nonsteroidal anti-inflammatory drugs. Differential diagnoses includes erosive gastritis, esophagitis, 2: Severe anemia secondary to GI blood losses. 3: Chronic back pain and chronic use of nonsteroidal anti-inflammatory drugs. 4: Constipation on presentation, resolved. Recommendation: Patient to be monitored in the ICU. 2-3 units of blood will be transfused to the patient GI to reevaluate and consider EGD instead of colonoscopy. Gen.surgery to evaluate and be on backup. start Protonix 40 mg IV push twice a day. Hold any nonsteroidal anti-inflammatory drugs. Avoid any blood thinners. Close monitoring in the ICU for now. We'll continue to follow while in the ICU. Time with Patient: Greater than 30
--- NOTE | 2019-07-08 14:35 | P.PN ---
Subjective 53-year-old admitted with GI bleed initially believed patient has lower GI bleed but today patient had hematemesis and dark stools patient had matter massive emesis patient became pale and patient was started given a couple liter boluses of IV fluid blood pressure dropped patient was transferred to ICU and transfused couple units of blood transfusion hemoglobin came down from 12-6 actually hemoglobin is probably less than less than 6 patient will be transfused 1 more unit of blood after which patient is clinically doing well now patient had a fall which she says because of the weakness in his legs gave up no injury was clinically appreciated patient denied any pain patient didn't hit his head. Patient will be continued on IV fluids and will receive another unit of blood. We'll closely monitor for any more GI bleed patient was started on Protonix. Patient feels much better now wanted to go to bathroom again by himself Constitutional: Denied any fatigue denied any fever. Cardio vascular: denied any chest pain, palpitations Gastrointestinal denied any nausea vomiting Pulmonary: Denied any shortness of breath cough Neurologic denied any new focal deficits All inpatient medications were reviewed and appropriate changes in these m edications as dictated in the interval history and assessment and plan. Objective - Vital Signs Vital signs: Vital Signs Temp 98.1 F 07/08/19 14:21 Pulse 80 07/08/19 14:21 Resp 18 07/08/19 14:21 BP 104/57 07/08/19 14:21 Pulse Ox 97 07/08/19 14:21 Intake & Output 07/07/19 07/08/19 07/08/19 18:59 06:59 18:59 Intake Total 360 710 Output Total 100 Balance 360 610 Weight 70.307 kg 68.6 kg 68.6 kg Intake: IV 400 Sodium Chloride 0.9% 1, 400 000 ml @ 100 mls/hr IV . Q10H [facility] Rx#:[id number] Oral 360 Blood Product 310 Rc As-1 Unit 310 [id number] Rc Pheresis 2 As3 Unit 0 [id number] Output: Urine 100 Other: Voiding Method Toilet Urinal # Voids 3 - Exam PHYSICAL EXAMINATION: GENERAL: The patient is alert and oriented x3, not in any acute distress. Well developed, well nourished. Does look pale HEENT: Pupils are round and equally reacting to light. EOMI. No scleral icterus. Does have conjunctival pallor. Normocephalic, atraumatic. No pharyngeal erythema. No thyromegaly. CARDIOVASCULAR: S1 and S2 present. No murmurs, rubs, or gallops. PULMONARY: Chest is clear to auscultation, no wheezing or crackles. ABDOMEN: Soft, nontender, nondistended, normoactive bowel sounds. No palpable organomegaly. MUSCULOSKELETAL: No joint swelling or deformity. EXTREMITIES: No cyanosis, clubbing, or pedal edema. NEUROLOGICAL: Gross neurological examination did not reveal any focal deficits. SKIN: No rashes. - Labs CBC & Chem 7: 07/08/19 09:20 07/08/19 09:20 Labs: Abnormal Lab Results - Last 24 Hours (Table) 07/08/19 07/08/19 07/08/19 Range/Units 09:00 09: 09:20 RBC 2.00 L (4.30-5.90) m/uL Hgb 6.3 L* D (13.0-17.5) gm/dL Hct 19.1 L* (39.0-53.0) % Plt Count 147 L (150-450) k/uL Sodium 136 L (137-145) mmol/L Carbon Dioxide 19 L (22-30) mmol/L BUN 28 H (9-20) mg/dL Glucose 176 H (74-99) mg/dL POC Glucose (mg/dL) 124 H (75-99) mg/dL Calcium 7.0 L (8.4-10.2) mg/dL Magnesium 2.4 H (1.6-2.3) mg/dL Alkaline Phosphatase 33 L (38-126) U/L Total Protein 4.0 L (6.3-8.2) g/dL Albumin 2.1 L (3.5-5.0) g/dL Crossmatch 07/08/19 07/08/19 Range/Units 09:20 10:22 RBC (4.30-5.90) m/uL Hgb (13.0-17.5) gm/dL Hct (39.0-53.0) % Plt Count (150-450) k/uL Sodium (137-145) mmol/L Carbon Dioxide (22-30) mmol/L BUN (9-20) mg/dL Glucose (74-99) mg/dL POC Glucose (mg/dL) 178 H (75-99) mg/dL Calcium (8.4-10.2) mg/dL Magnesium (1.6-2.3) mg/dL Alkaline Phosphatase (38-126) U/L Total Protein (6.3-8.2) g/dL Albumin (3.5-5.0) g/dL Crossmatch See Detail Assessment and Plan Plan: --Massive upper GI bleed probably secondary to peptic ulcer disease lower GI bleed cannot be ruled out because of which gastroneurologist planning on doing a bowel prep before they can do upper and lower GI endoscopy. Patient had massive hematemesis along with the significant amount of dark stools because of which are patient was transferred to ICU and patient is being transferred to 3 units of blood has mentioned above .t -Abdominal pain secondary to constipation which resolved -Possibly of syncope.may be related to syncope or vasovagal event echocardiogram is pendinghronic low back pain on morphine will be discontinued and patient was started on Toradol -Nicotine abuse: Counseling was provided patient has slight wheeze on exam, was never diagnosed with COPD -
[2019-07-08] MEDS: HYDROcodone/APAP 5-325MG 1 EACH TAB PO PRN (15:51)
[2019-07-08] MEDS ORDERED: PEG 3350-NA SULF,BICARB,CL/KCL 4,000 ML BOTTLE PO ONE (17:00)
--- NOTE | 2019-07-08 17:02 | P.PN ---
Subjective Progress Note Date: 07/08/19 Principal diagnosis: Anemia acute blood loss, GI bleed, constipation Patient seen lying in bed in the ICU, transferred after episode of hematemesis. Currently receiving transfusion of PRBCs. Objective - Vital Signs Vital signs: Vital Signs Temp 98.3 F 07/08/19 08:23 Pulse 105 H 07/08/19 11:00 Resp 15 07/08/19 11:00 BP 106/58 07/08/19 11:00 Pulse Ox 97 07/08/19 11:00 Intake & Output 07/07/19 07/08/19 07/08/19 18:59 06:59 18:59 Intake Total 360 100 Balance 360 100 Weight 70.307 kg 68.6 kg Intake: IV 100 Sodium Chloride 0.9% 1, 100 000 ml @ 100 mls/hr IV . Q10H [id number] Rx#:[id number] Oral 360 Other: Voiding Method Toilet Toilet # Voids 3 - Exam On physical examination, patient appears comfortable in no apparent distress. HEAD: Normocephalic, atraumatic. EYES: No scleral icterus. No conjunctival injection. MOUTH: No lesions, tongue midline. NECK: Trachea midline, no gross abnormalities. ABDOMEN: Soft, mild tenderness to palpation. Bowel sounds are positive. No organomegaly. No guarding or rigidity. EXTREMITIES: No pedal edema. SKIN: No rashes, no jaundice. NEUROLOGIC: Alert and oriented x3. No focal deficits. - Labs CBC & Chem 7: 07/08/19 09:20 07/08/19 09:20 Labs: Abnormal Lab Results - Last 24 Hours (Table) 07/08/19 07/08/19 07/08/19 Range/Units 09:00 09:20 09:20 RBC 2.00 L (4.30-5.90) m/uL Hgb 6.3 L* D (13.0-17.5) gm/dL Hct 19.1 L* (39.0-53.0) % Plt Count 147 L (150-450) k/uL Sodium 136 L (137-145) mmol/L Carbon Dioxide 19 L (22-30) mmol/L BUN 28 H (9-20) mg/dL Glucose 176 H (74-99) mg/dL POC Glucose (mg/dL) 124 H (75-99) mg/dL Calcium 7.0 L (8.4-10.2) mg/dL Magnesium 2.4 H (1.6-2.3) mg/dL Alkaline Phosphatase 33 L (38-126) U/L Total Protein 4.0 L (6.3-8.2) g/dL Albumin 2.1 L (3.5-5.0) g/dL Crossmatch 07/08/19 07/08/19 Range/Units 09:20 10:22 RBC (4.30-5.90) m/uL Hgb (13.0-17.5) gm/dL Hct (39.0-53.0) % Plt Count (150-450) k/uL Sodium (137-145) mmol/L Carbon Dioxide (22-30) mmol/L BUN (9-20) mg/dL Glucose (74-99) mg/dL POC Glucose (mg/dL) 178 H (75-99) mg/dL Calcium (8.4-10.2) mg/dL Magnesium (1.6-2.3) mg/dL Alkaline Phosphatase (38-126) U/L Total Protein (6.3-8.2) g/dL Albumin (3.5-5.0) g/dL Crossmatch See Detail Assessment and Plan (1) Anemia associated with acute blood loss Narrative/Plan: 53-year-old male initially hospitalized with complaints of abdominal pain and constipation with findings of fecal stasis on computed tomography scan of the abdomen the patient also had reports of blood per rectum. Hemoglobin initially 3 patient had an acute fall in hemoglobin this morning is 6.3 after episodes of hematemesis. Unknown etiology with possibility for Joana-Aguilar tear in the setting of nausea and vomiting, peptic ulcer disease, erosive esophagitis or gastritis, AVM or other etiology. Current Visit: Yes Status: Acute Code(s): D62 - ACUTE POSTHEMORRHAGIC ANEMIA SNOMED Code(s): 278888154 (2) Abdominal pain Narrative/Plan: 53-year-old male with chronic lower back pain who presented to the hospital due to nausea, vomiting and abdominal pain. Found to have fecal stasis and reporting one week of constipation. He also reported some associated rectal bleeding. Current Visit: Yes Status: Acute Code(s): R10.9 - UNSPECIFIED ABDOMINAL PAIN SNOMED Code(s): 04045245 (3) Nausea & vomiting Current Visit: Yes Status: Acute Code(s): R11.2 - NAUSEA WITH VOMITING, UNSPECIFIED SNOMED Code(s): 72608975 (4) Rectal bleeding Current Visit: Yes Status: Acute Code(s): K62.5 - HEMORRHAGE OF ANUS AND RECTUM SNOMED Code(s): 41745348 Plan: Supportive care Continue to monitor hemoglobin and hematocrit and transfuse as needed PRBCs ordered patient by primary team Continue Protonix 40 mg twice daily Avoid NSAID therapy Continue to monitor stool output Okay for clear liquid diet Plan is for EGD tomorrow, if patient is able to tolerate bowel prep will perform colonoscopy as well at that time, otherwise will proceed with EGD only, this was discussed both with the patient as well as his and daughter at length when understand the risks and benefits of the treatment plan and agree with the treatment plan with all questions answered to their satisfaction Thank you for allowing us to participate in the care of the patient we will continue to follow
[2019-07-08] MEDS ORDERED: BISACODYL 5 MG TABLET.DR PO ONE (18:00)
[2019-07-08] MEDS: ONDANSETRON 4 MG/2 ML VIAL IVP PRN (18:44)
[2019-07-08 21:58] LABS: Basophils % (A) 0 %; Eosinophils % (A) 0 %; Lymphocytes # (A) 2.1 k/uL (1.0-4.8); Lymphocytes % (A) 24 %; MCH 30.1 pg (25.0-35.0); MCHC 33.5 g/dL (31.0-37.0); Mean Platelet Volume 9.1; Monocytes # (A) 0.5 k/uL (0-1.0); Monocytes % (A) 5 %; Neutrophils % (A) 68 %; Platelet Count 130 k/uL (150-450); RBC 3.11 m/uL (4.30-5.90); RDW 14.2 % (11.5-15.5); WBC 8.8 k/uL (3.8-10.6)
[2019-07-08 22:25] LABS: HGB 9.4 gm/dL (13.0-17.5)
[2019-07-09 05:32] LABS: Basophils % (A) 0 %; Eosinophils # (A) 0.1 k/uL (0-0.7); Eosinophils % (A) 1 %; HCT 22.3 % (39.0-53.0); Lymphocytes # (A) 2.2 k/uL (1.0-4.8); Lymphocytes % (A) 34 %; MCHC 33.4 g/dL (31.0-37.0); MCV 89.6 fL (80.0-100.0); Mean Platelet Volume 9.3; Monocytes # (A) 0.5 k/uL (0-1.0); Monocytes % (A) 8 %; Neutrophils # (A) 3.6 k/uL (1.3-7.7); Neutrophils % (A) 56 %; Platelet Count 112 k/uL (150-450); RBC 2.49 m/uL (4.30-5.90); RDW 14.4 % (11.5-15.5); WBC 6.5 k/uL (3.8-10.6)
[2019-07-09 05:39] LABS: African American GFR (CKD) >90 (>60 ml/min/1.73 sqM); Anion Gap 1 mmol/L; Blood Urea Nitrogen 22 mg/dL (9-20); Calcium 7.3 mg/dL (8.4-10.2); Carbon Dioxide 24 mmol/L (22-30); Chloride 109 mmol/L (98-107); Glucose 84 mg/dL (74-99); Non-African American GFR(CKD) >90 (>60 ml/min/1.73 sqM); Potassium 3.8 mmol/L (3.5-5.1); Sodium 134 mmol/L (137-145)
[2019-07-09 05:41] LABS: HGB 7.5 gm/dL (13.0-17.5)
[2019-07-09] MEDS ORDERED: Potassium Replacement Protocol 1 EACH MISC MISCELLANE PRN (05:59)
[2019-07-09] MEDS: SODIUM CHLORIDE 0.9% 1,000 ML IV SCH ×3 (06:39→20:46)
[2019-07-09] MEDS: POTASSIUM CHLORIDE 10 MEQ in WATER FOR INJECTION 1 100ML.BAG IVPB SCH ×2 (06:39→08:28)
[2019-07-09] MEDS: PANTOPRAZOLE 40 MG/10 ML VIAL IVP SCH ×2 (08:28→20:46)
--- NOTE | 2019-07-09 11:51 | P.GSCN ---
History of Present Illness Consult date: 07/09/19 Reason for Consult: Upper GI bleed History of present illness: This is a 53-year-old male who was originally admitted to the hospital for fecal stasis. Patient developed an upper GI bleed he had hematemesis. Using 1 from 12-6. The patient has history of NSAID use for his back. The patient's clinical picture appears to be of the upper GI bleed which may be related to it in the ulcer. Patient has some minimal abdominal pain at this time. GI has been consult is for both fecal stasis and GI bleed. He is currently receiving 3 units packed red cells his he will went from 6-9-7.5. Past Medical History Past Medical History: No Reported History Additional Past Medical History / Comment(s): Chronic low back pain History of Any Multi-Drug Resistant Organisms: None Reported Past Surgical History: No Surgical Hx Reported Past Anesthesia/Blood Transfusion Reactions: Unable to Obtain Additional Past Anesthesia/Blood Transfusion Reaction / Comm: Pt has never had surgery Smoking Status: Current every day smoker - Past Family History Father History Unknown: Yes Additional Family Medical History / Comment(s): Pt has not had contact with his father for years. Mother History Unknown: Yes Additional Family Medical History / Comment(s): Pt has not had contact with his mother in 20 yrs. Medications and Allergies Home Medications Medication Instructions Recorded Confirmed Type Ibuprofen [Advil] 400 mg PO Q6H PRN 07/07/19 07/07/19 History Allergies Allergy/AdvReac Type Severity Reaction Status Date / Time No Known Allergies Allergy Verified 07/07/19 07:50 Surgical - Exam Vital Signs Temp Pulse Resp BP Pulse Ox 97.5 F L 82 16 132/84 98 07/07/19 05:48 07/07/19 05:48 07/07/19 05:48 07/07/19 05:48 07/07/19 05:48 - General well developed, well nourished, no distress - Eyes PERRL - ENT normal pinna - Neck no masses - Respiratory normal expansion - Cardiovascular Rhythm: regular - Abdomen Abdomen: soft, non tender Results - Labs 07/09/19 05:20 07/09/19 05:20 Abnormal Lab Results - Last 24 Hours (Table) 07/08/19 07/08/19 07/09/19 Range/Units 09:20 21:31 05:20 RBC 3.11 L 2.49 L (4.30-5.90) m/uL Hgb 9.4 L D 7.5 L D (13.0-17.5) gm/dL Hct 28.0 L 22.3 L (39.0-53.0) % Plt Count 130 L 112 L (150-450) k/uL Sodium (137-145) mmol/L Chloride (98-107) mmol/L BUN (9-20) mg/dL Calcium (8.4-10.2) mg/dL Crossmatch See Detail 07/09/19 Range/Units 05:20 RBC (4.30-5.90) m/uL Hgb (13.0-17.5) gm/dL Hct (39.0-53.0) % Plt Count (150-450) k/uL Sodium 134 L (137-145) mmol/L Chloride 109 H (98-107) mmol/L BUN 22 H (9-20) mg/dL Calcium 7.3 L (8.4-10.2) mg/dL Crossmatch Diabetes panel 07/09/19 Range/Units 05:20 Sodium 134 L (137-145) mmol/L Potassium 3.8 (3.5-5.1) mmol/L Chloride 109 H (98-107) mmol/L Carbon Dioxide 24 (22-30) mmol/L BUN 22 H (9-20) mg/dL Creatinine 0.85 (0.66-1.25) mg/dL Glucose 84 (74-99) mg/dL Calcium 7.3 L (8.4-10.2) mg/dL Calcium panel 07/09/19 Range/Units 05:20 Calcium 7.3 L (8.4-10.2) mg/dL Pituitary panel 07/09/19 Range/Units 05:20 Sodium 134 L (137-145) mmol/L Potassium 3.8 (3.5-5.1) mmol/L Chloride 109 H (98-107) mmol/L Carbon Dioxide 24 (22-30) mmol/L BUN 22 H (9-20) mg/dL Creatinine 0.85 (0.66-1.25) mg/dL Glucose 84 (74-99) mg/dL Calcium 7.3 L (8.4-10.2) mg/dL Adrenal panel 07/09/19 Range/Units 05:20 Sodium 134 L (137-145) mmol/L Potassium 3.8 (3.5-5.1) mmol/L Chloride 109 H (98-107) mmol/L Carbon Dioxide 24 (22-30) mmol/L BUN 22 H (9-20) mg/dL Creatinine 0.85 (0.66-1.25) mg/dL Glucose 84 (74-99) mg/dL Calcium 7.3 L (8.4-10.2) mg/dL Assessment and Plan Assessment: Upper GI bleed. Patient may have a leading duodenal ulcer due to NSAID use. Patient will be watched closely. He'll undergo EGD today. His hemoglobin will be rechecked.
[2019-07-09] MEDS ORDERED: IV FLUID CONTINUATION 1,000 ML IV ONE ×2 (11:58)
[2019-07-09] MEDS ORDERED: LIDOCAINE 1% INJ 10MG/ML (20 ML MDV) ONE (12:13)
[2019-07-09] MEDS ORDERED: MIDAZOLAM 2 MG/2 ML VIAL ONE (12:13)
[2019-07-09] MEDS ORDERED: PROPOFOL 10 MG/ML 20 ML VIAL IV ONE (12:13)
[2019-07-09] MEDS ORDERED: EPINEPHrine 10 ML SYRINGE (0.1 MG/ML) MISCELLANE ONE (12:40)
[2019-07-09] MEDS ORDERED: SODIUM CHLORIDE 0.9% 1,000 ML IV ONE (13:00)
--- NOTE | 2019-07-09 13:48 | P.PCN ---
Date of Procedure: 07/09/19 Description of Procedure: Brief history: 53-year-old male initially hospitalized with complaints of abdominal pain and constipation with findings of fecal stasis on computed tomography scan of the abdomen the patient also had reports of blood per rectum. Hemoglobin initially 3 patient had an acute fall in hemoglobin this morning is 6.3 after episodes of hematemesis. Procedure performed: Esophagogastroduodenoscopy with Endo Clip placement and epinephrine injection Colonoscopy Estimated blood loss: Minimal. Preoperative diagnosis: Anemia of acute blood loss, GI bleed Anesthesia: MAC Procedure: After informed consent was obtained from the patient was brought into the endo scopy unit and IV sedation was administered by anesthesia under continuous monitoring. Initially upper endoscopy was done. The Olympus GF 190 video endoscope was inserted into the mouth and esophagus intubated without any difficulty and was gradually advanced into the stomach and duodenum and carefully examined. The bulb was significant for a large 3 cm cratered ulcer. The ulcer was not bleeding. There was a red spot in the middle of the ulcer suspicious for a possible visible vessel. 8 mL of epinephrine were injected in a circumferential manner around the ulcer. 2 endoclips were placed over the erythematous red spots. No active bleeding was noted at the end of the intervention. The second part of the duodenum appeared normal. The scope was then withdrawn into the stomach adequately insufflated with air and upon careful examination the antrum and body, cardia and fundus appeared normal. The scope was then withdrawn into the esophagus. The GE junction was located at 42 cm to the incisors. It appeared regular with no erythema erosions or ulcerations. Rest of the esophagus appeared normal. Patient tolerated the procedure well. At this time the patient continued to remain sedation. Initial digital rectal examination was normal. Olympus CF 190 video colonoscope was then inserted into the rectum and gradually advanced to the cecum without any difficulty. Careful examination was performed as the scope was gradually being withdrawn. The prep was good, with only a small amount of liquid stool prohibiting complete visualization of the mucosa. The cecum, ascending colon, transverse colon, descending colon, sigmoid colon and rectum appeared normal. A few diminutive polyps measuring only a few millimeters in size were seen but not removed in the setting of active GI bleed. Retroflexion was performed in the rectum and no lesions were noted. Patient tolerated the procedure well. Impression: 1. Large cratered ulcer in the duodenal bulb without active bleeding, however suspicion for visible vessel treated with epinephrine injection and Endo Clip placement 2. No other active bleeding or source of bleeding noted on upper endoscopy. 2. No active bleeding, or pathology to explain GI bleed noted and colonoscopy. There was a small amount of old hemolyzed blood throughout the colon likely from upper GI bleed. For also a few diminutive polyps, possibly representing hyperplastic polyps which were not removed in the setting of recent GI bleed. Recommendations: Findings of this examination were discussed with the patient as well as his family were informed of the findings and the treatment plan. Patient should remain in the ICU today. Okay for liquid diet. Continue to monitor hemoglobin and hematocrit and transfuse as needed. Continue Protonix 40 mg twice daily. Avoid NSAID use. If further bleeding patient will need definitive intervention with the surgical service were on standby or transfer to a tertiary center where CT angiography with coiling can be performed. Patient should follow-up in 3-6 months for colonoscopy with polypectomy.
--- NOTE | 2019-07-09 13:48 | P.PN ---
Subjective 53-year-old admitted with GI bleed initially believed patient has lower GI bleed but today patient had hematemesis and dark stools patient had matter massive emesis patient became pale and patient was started given a couple liter boluses of IV fluid blood pressure dropped patient was transferred to ICU and transfused couple units of blood transfusion hemoglobin came down from 12-6 actually hemoglobin is probably less than less than 6 patient will be transfused 1 more unit of blood after which patient is clinically doing well now patient had a fall which she says because of the weakness in his legs gave up no injury was clinically appreciated patient denied any pain patient didn't hit his head. Patient will be continued on IV fluids and will receive another unit of blood. We'll closely monitor for any more GI bleed patient was started on Protonix. Patient feels much better now wanted to go to bathroom again by himself. 07/09/2019 Patient on upper GI endoscopy and colonoscopy which showed internal hemorrhoids and the duodenal ulcer, patient doesn't have any clinical GI bleed patient was monitored in ICU for 1 night possibility of discharge tomorrow on proton pulmonary with a continue with IV fluids Constitutional: Denied any fatigue denied any fever. Cardio vascular: denied any chest pain, palpitations Gastrointestinal denied any nausea vomiting Pulmonary: Denied any shortness of breath cough Neurologic denied any new focal deficits All inpatient medications were reviewed and appropriate changes in these medications as dictated in the interval history and assessment and plan. Objective - Vital Signs Vital signs: Vital Signs Temp 98.1 F 07/09/19 08:22 Pulse 71 07/09/19 11:30 Resp 21 07/09/19 11:30 BP 113/63 07/09/19 13:00 Pulse Ox 97 07/09/19 11:30 Intake & Output 07/08/19 07/09/19 07/09/19 18:59 06:59 18:59 Intake Total 1420 1610 2100 Output Total 500 800 850 Balance 302 538 8559 Weight 68.6 kg 74.7 kg Intake: IV 800 1200 2100 Potassium Chloride 10 meq 1000 In Water For Injection 1 100ml.bag @ 100 mls/hr IVPB Q1H [facility] Rx#: [id number] Sodium Chloride 0.9% 1, 800 1200 400 000 ml @ 100 mls/hr IV . Q10H [facility] Rx#:[id number] Intake, IV Titration 100 Amount Potassium Chloride 10 meq 100 In Water For Injection 1 100ml.bag @ 100 mls/hr IVPB Q1H [facility] Rx#: [id number] Blood Product 620 310 Rc As-1 Unit 0 310 [id number] Rc As-1 Unit 310 [id number] Rc Pheresis 2 As3 Unit 310 [id number] Output: Urine 300 800 850 Stool 200 Other: Voiding Method Urinal Toilet Urinal - Exam PHYSICAL EXAMINATION: GENERAL: The patient is alert and oriented x3, not in any acute distress. Well developed, well nourished. Does look pale HEENT: Pupils are round and equally reacting to light. EOMI. No scleral icterus. Does have conjunctival pallor. Normocephalic, atraumatic. No pharyngeal erythema. No thyromegaly. CARDIOVASCULAR: S1 and S2 present. No murmurs, rubs, or gallops. PULMONARY: Chest is clear to auscultation, no wheezing or crackles. ABDOMEN: Soft, nontender, nondistended, normoactive bowel sounds. No palpable organomegaly. MUSCULOSKELETAL: No joint swelling or deformity. EXTREMITIES: No cyanosis, clubbing, or pedal edema. NEUROLOGICAL: Gross neurological examination did not reveal any focal deficits. SKIN: No rashes. - Labs CBC & Chem 7: 07/09/19 05:20 07/09/19 05:20 Labs: Abnormal Lab Results - Last 24 Hours (Table) 07/08/19 07/08/19 07/09/19 Range/Units 09:20 21:31 05:20 RBC 3.11 L 2.49 L (4.30-5.90) m/uL Hgb 9.4 L D 7.5 L D (13.0-17.5) gm/dL Hct 28.0 L 22.3 L (39.0-53.0) % Plt Count 130 L 112 L (150-450) k/uL Sodium (137-145) mmol/L Chloride (98-107) mmol/L BUN (9-20) mg/dL Calcium (8.4-10.2) mg/dL Crossmatch See Detail 07/09/19 Range/Units 05:20 RBC (4.30-5.90) m/uL Hgb (13.0-17.5) gm/dL Hct (39.0-53.0) % Plt Count (150-450) k/uL Sodium 134 L (137-145) mmol/L Chloride 109 H (98-107) mmol/L BUN 22 H (9-20) mg/dL Calcium 7.3 L (8.4-10.2) mg/dL Crossmatch Assessment and Plan Plan: --Massive upper GI bleed probably secondary to peptic ulcer disease lower GI bleed cannot be ruled out because of which gastroneurologist planning on doing a bowel prep before they can do upper and lower GI endoscopy. Patient had massive hematemesis along with the significant amount of dark stools because of which are patient was transferred to ICU, patient had upper GI endoscopy and colonoscopy which showed internal ulcer and internal hemorrhoids. -Abdominal pain secondary to constipation which resolved -Possibly of syncope.may be related to syncope or vasovagal event echocardiogram is pending chronic low back -Nicotine abuse: Counseling was provided
--- NOTE | 2019-07-09 14:30 | P.PN ---
Subjective Progress Note Date: 07/09/19 Principal diagnosis: Acute upper GI bleeding this is a 53-year-old white male with history of chronic low back pain related to work injury. Patient is on significant amount of nonsteroidal anti- inflammatory drugs which she takes on a daily basis to relieve his back pain. Patient had no previous history of gastric ulcer disease. No previous history of GI bleeding. He presented to the ER mostly with intermittent episodes of nausea vomiting and constipation for the last 1 week. Patient was also describing some vague lower abdominal pain. And upon evaluation the patient was felt to be constipated. He was given laxatives, and he felt much better after he had a bowel movement. However early this morning, the patient had an episode of significant emesis, bright red blood emesis and later was coffee-ground. His hemoglobin dropped almost 6 g from the time of admission. Hence arrangements were made for the patient be transferred to the ICU, and I was asked to see him on consultation. Blood was ordered. Fluids were given. Protonix was ordered. GI consultation was done, and he may require EGD today. Considering the amount of bleeding within a very short period of time, I did recommend surgical consultation for backup in case his condition gets much worse.during my evaluation, the patient was hemodynamically stable. He was having intermittent episodes of dark stools, but no active emesis. Reevaluated today on 07/09/2019, patient remains in the ICU, no major bleeding issues in the last 24 hours. Patient received a total of 3 units of packed RBCs since yesterday when he had his major upper GI bleed. Scheduled to undergo EGD and colonoscopy today. Patient is hemodynamically stable, remains on Protonix. His hemoglobin this morning is 7.5. Yesterday was 9.4. Again clinically the patient has no active bleeding, and I'm suspecting that the patient has peptic ulcer disease secondary to nonsteroidal anti-inflammatory drugs that he has been using for a long time with relatively high doses. Objective - Vital Signs Vital signs: Vital Signs Temp 98.1 F 07/09/19 08:22 Pulse 69 07/09/19 14:00 Resp 17 07/09/19 14:00 BP 134/78 07/09/19 14:00 Pulse Ox 98 07/09/19 14:00 Intake & Output 07/08/19 07/09/19 07/09/19 18:59 06:59 18:59 Intake Total 1420 1610 2200 Output Total 119 031 5828 Balance 990 304 5608 Weight 68.6 kg 74.7 kg Intake: IV 800 1200 2200 Potassium Chloride 10 meq 1100 In Water For Injection 1 100ml.bag @ 100 mls/hr IVPB Q1H [facility] Rx#: [id number] Sodium Chloride 0.9% 1, 800 1200 400 000 ml @ 100 mls/hr IV . Q10H [facility] Rx#:[id number] Intake, IV Titration 100 Amount Potassium Chloride 10 meq 100 In Water For Injection 1 100ml.bag @ 100 mls/hr IVPB Q1H [facility] Rx#: [id number] Blood Product 620 310 Rc As-1 Unit 0 310 [id number] Rc As-1 Unit 310 [id number] Rc Pheresis 2 As3 Unit 310 [id number] Output: Urine 156 500 7211 Stool 200 Other: Voiding Method Urinal Toilet Urinal - Exam Physical Exam: Revealed a 53-year-old white male in no distress. Head: Atraumatic normocephalic. HEENT:[Neck is supple.] [No neck masses.] [No thyromegaly.] [No JVD.]throat is clear. PERRLA, EOMI, Chest: [Clear throughout, no crackles, no rhonchi, no wheezes.] Cardiac Exam: [Normal S1 and S2, no S3 gallop, no murmur.] Abdomen: [Soft, nontender, no megaly, no rebound, no guarding, normal bowel sounds.] Extremities: [No clubbing, no edema, no cyanosis.] Neurological Exam: [No focal neurologic deficit.]alert oriented 3. Psychiatric: Normal mood and normal affect and normal mental status examination. Skin: No rashes. Lymphatics: No lymphadenopathy. - Labs CBC & Chem 7: 07/09/19 05:20 07/09/19 05:20 Labs: Abnormal Lab Results - Last 24 Hours (Table) 07/08/19 07/08/19 07/09/19 Range/Units 09:20 21:31 05:20 RBC 3.11 L 2.49 L (4.30-5.90) m/uL Hgb 9.4 L D 7.5 L D (13.0-17.5) gm/dL Hct 28.0 L 22.3 L (39.0-53.0) % Plt Count 130 L 112 L (150-450) k/uL Sodium (137-145) mmol/L Chloride (98-107) mmol/L BUN (9-20) mg/dL Calcium (8.4-10.2) mg/dL Crossmatch See Detail 07/09/19 Range/Units 05:20 RBC (4.30-5.90) m/uL Hgb (13.0-17.5) gm/dL Hct (39.0-53.0) % Plt Count (150-450) k/uL Sodium 134 L (137-145) mmol/L Chloride 109 H (98-107) mmol/L BUN 22 H (9-20) mg/dL Calcium 7.3 L (8.4-10.2) mg/dL Crossmatch Assessment and Plan Assessment: impression: 1:Upper GI bleeding, most likely secondary to peptic ulcer disease. Most likely secondary to chronic use of nonsteroidal anti-inflammatory drugs. Going for EGD today. 2: Severe anemia secondary to GI blood losses. Presently no active bleeding. Patient received a total of 3 units of packed RBCs since admission 3: Chronic back pain and chronic use of nonsteroidal anti-inflammatory drugs. 4: Constipation on presentation, resolved. Recommendation: Patient to be monitored in the ICU. EGD and colonoscopy to be done today Continue Protonix 40 mg IV push twice a day. Stop any nonsteroidal anti-inflammatory drugs. Avoid any blood thinners. Close monitoring in the ICU for the next 24 hours then transferred to a regular medical floor. We'll continue to follow while in the ICU. Time with Patient: Less than 30
--- NOTE | 2019-07-09 16:29 | ECHOF ---
Referral Reason:syncope MEASUREMENTS -------- HEIGHT: 170.2 cm WEIGHT: 70.3 kg BP: 118/77 RVIDd: 3.2 cm (< 3.3) IVSd: 0.9 cm (0.6 - 1.1) LVIDd: 4.1 cm (3.9 - 5.3) LVPWd: 1.3 cm (0.6 - 1.1) IVSs: 1.4 cm LVIDs: 2.5 cm LVPWs: 2.0 cm LAESV Index (A-L): 23.09 ml/m Ao Diam: 3.0 cm (2.0 - 3.7) AV Cusp: 1.9 cm (1.5 - 2.6) MV EXCURSION: 21.441 mm (> 18.000) MV EF SLOPE: 123 mm/s (70 - 150) EPSS: 0.6 cm MV E Asael: 0.69 m/s MV DecT: 306 ms MV A Asael: 0.87 m/s MV E/A Ratio: 0.79 RAP: 5.00 mmHg RVSP: 16.43 mmHg FINDINGS -------- Sinus rhythm. This was a technically adequate study. The left ventricular size is normal. There is mild concentric left ventricular hypertrophy. Overa ll left ventricular systolic function is normal with, an EF between 55 - 60 %. The diastolic fillin g pattern is normal for the age of the patient 11.13. The right ventricle is normal in size. Normal LA size by volume 22+/-6 ml/m2. The right atrial size is normal. Interatrial and interventricular septum intact. The aortic valve was not well visualized. There is no evidence of aortic regurgitation. There is no evidence of aortic stenosis. There is trace mitral regurgitation. Mild tricuspid regurgitation present. There is no evidence of pulmonary hypertension. The right v entricular systolic pressure, as measured by Doppler, is 16.43mmHg. There is no pulmonic regurgitation present. The aortic root size is normal. Normal inferior vena cava with normal inspiratory collapse consistent with estimated right atrial pre ssure of 5 mmHg. There is no pericardial effusion. CONCLUSIONS -------- 1. Sinus rhythm. 2. This was a technically adequate study. 3. The left ventricular size is normal. 4. There is mild concentric left ventricular hypertrophy. 5. Overall left ventricular systolic function is normal with, an EF between 55 - 60 %. 6. The diastolic filling pattern is normal for the age of the patient 11.13 7. The right ventricle is normal in size. 8. Normal LA size by volume 22+/-6 ml/m2. 9. The right atrial size is normal. 10. Interatrial and interventricular septum intact. 11. The aortic valve was not well visualized. 12. There is no evidence of aortic regurgitation. 13. There is no evidence of aortic stenosis. 14. There is trace mitral regurgitation. 15. Mild tricuspid regurgitation present. 16. There is no evidence of pulmonary hypertension. 17. The right ventricular systolic pressure, as measured by Doppler, is 16.43mmHg. 18. There is no pulmonic regurgitation present. 19. The aortic root size is normal. 20. Normal inferior vena cava with normal inspiratory collapse consistent with estimated right atrial pressure of 5 mmHg. 21. There is no pericardial effusion. CONTINUITY COORDINATOR: Ilsa Garcia RDCS
[2019-07-09] MEDS: HYDROcodone/APAP 5-325MG 1 EACH TAB PO PRN (19:17)
[2019-07-10 04:15] LABS: HCT 21.6 % (39.0-53.0); HGB 7.1 gm/dL (13.0-17.5); MCH 29.7 pg (25.0-35.0); MCHC 33.1 g/dL (31.0-37.0); MCV 89.8 fL (80.0-100.0); Mean Platelet Volume 9.3; Platelet Count 157 k/uL (150-450); RDW 14.4 % (11.5-15.5); WBC 7.7 k/uL (3.8-10.6)
[2019-07-10 04:22] LABS: African American GFR (CKD) >90 (>60 ml/min/1.73 sqM); Anion Gap 3 mmol/L; Blood Urea Nitrogen 11 mg/dL (9-20); Calcium 7.7 mg/dL (8.4-10.2); Carbon Dioxide 23 mmol/L (22-30); Chloride 110 mmol/L (98-107); Glucose 86 mg/dL (74-99); Non-African American GFR(CKD) >90 (>60 ml/min/1.73 sqM); Potassium 3.9 mmol/L (3.5-5.1); Sodium 136 mmol/L (137-145)
[2019-07-10] MEDS ORDERED: Potassium Replacement Protocol 1 EACH MISC MISCELLANE PRN (04:38)
[2019-07-10] MEDS ORDERED: POTASSIUM CHLORIDE ER 20 MEQ TAB.ER PO SCH (05:00)
[2019-07-10] MEDS: SODIUM CHLORIDE 0.9% 1,000 ML IV SCH ×2 (05:47→15:43)
--- NOTE | 2019-07-10 08:09 | XR ---
EXAMINATION TYPE: XR chest 1V portable DATE OF EXAM: 07/10/2019 COMPARISON: Prior chest x-ray 07/07/2019 HISTORY: Intensive care unit management, syncopal episode TECHNIQUE: frontal view of the chest is obtained on 2 images. FINDINGS: There is no focal air space opacity, pleural effusion, or pneumothorax seen. The cardiac silhouette size is within normal limits. The osseous structures are intact. There are overlying car diac leads. IMPRESSION: No acute process.
[2019-07-10] MEDS: HYDROcodone/APAP 5-325MG 1 EACH TAB PO PRN ×3 (09:17→21:31)
[2019-07-10] MEDS: PANTOPRAZOLE 40 MG/10 ML VIAL IVP SCH ×2 (09:18→20:26)
--- NOTE | 2019-07-10 10:10 | P.PN ---
Subjective Progress Note Date: 07/10/19 Principal diagnosis: Acute upper GI bleeding this is a 53-year-old white male with history of chronic low back pain related to work injury. Patient is on significant amount of nonsteroidal anti- inflammatory drugs which she takes on a daily basis to relieve his back pain. Patient had no previous history of gastric ulcer disease. No previous history of GI bleeding. He presented to the ER mostly with intermittent episodes of nausea vomiting and constipation for the last 1 week. Patient was also describing some vague lower abdominal pain. And upon evaluation the patient was felt to be constipated. He was given laxatives, and he felt much better after he had a bowel movement. However early this morning, the patient had an episode of significant emesis, bright red blood emesis and later was coffee-ground. His hemoglobin dropped almost 6 g from the time of admission. Hence arrangements were made for the patient be transferred to the ICU, and I was asked to see him on consultation. Blood was ordered. Fluids were given. Protonix was ordered. GI consultation was done, and he may require EGD today. Considering the amount of bleeding within a very short period of time, I did recommend surgical consultation for backup in case his condition gets much worse.during my evaluation, the patient was hemodynamically stable. He was having intermittent episodes of dark stools, but no active emesis. Reevaluated today on 07/09/2019, patient remains in the ICU, no major bleeding issues in the last 24 hours. Patient received a total of 3 units of packed RBCs since yesterday when he had his major upper GI bleed. Scheduled to undergo EGD and colonoscopy today. Patient is hemodynamically stable, remains on Protonix. His hemoglobin this morning is 7.5. Yesterday was 9.4. Again clinically the patient has no active bleeding, and I'm suspecting that the patient has peptic ulcer disease secondary to nonsteroidal anti-inflammatory drugs that he has been using for a long time with relatively high doses. On 07/10/2019 and is seen in follow-up in the intensive care unit, he is awake and alert, and at 3, no acute distress, no bleeding overnight. No hematemesis, no melena, no hematochezia. Today's labs have been reviewed showing hemoglobin of 7.1, white blood cell count of 7.7, renal profile is within normal limits, sodium is 136, chloride is 110, demonstrated electrolytes are unremarkable. Patient had the EGD/colonoscopy yesterday on 07/09/2019 and a large cratered ulcer in the duodenal bulb without active bleeding was found which was injected with epinephrine and Endo Clips were placed 2. No active bleeding or pathology noted on colonoscopy other than a few diminutive polyps which were not removed in the setting of recent GI bleeding. Hemodynamically she remains stable, is tolerating clear liquid diet this morning, no nausea, no abdominal pain, is on IV Protonix, 0.9 normal saline infusing at a rate of 100 ML per hour, no acute complaints, no shortness of breath or chest pain. Sinus rhythm on a monitor. Objective - Vital Signs Vital signs: Vital Signs Temp 98.1 F 07/10/19 08:00 Pulse 68 07/10/19 09:00 Resp 17 07/10/19 09:00 BP 95/49 07/10/19 09:00 Pulse Ox 97 07/10/19 09:00 Intake & Output 07/09/19 07/10/19 07/10/19 18:59 06:59 18:59 Intake Total 2700 1100 800 Output Total 1900 1550 825 Balance 800 -450 -25 Weight 73.1 kg Intake: IV 2700 1100 300 Potassium Chloride 10 meq 200 In Water For Injection 1 100ml.bag @ 100 mls/hr IVPB Q1H [facility] Rx#: [id number] Sodium Chloride 0.9% 1, 1800 1100 300 000 ml @ 100 mls/hr IV . Q10H [facility] Rx#:[id number] Oral 500 Output: Urine 1900 1550 825 Other: Voiding Method Urinal Urinal - Exam GENERAL EXAM: Alert, very pleasant, 53-year-old on room air, with a pulse ox of 97-99% comfortable in no apparent distress. HEAD: Normocephalic/atraumatic. EYES: Normal reaction of pupils, equal size. Conjunctiva pink, sclera white. NOSE: Clear with pink turbinates. THROAT: No erythema or exudates. NECK: No masses, no JVD, no thyroid enlargement, no adenopathy. CHEST: No chest wall deformity. Symmetrical expansion. LUNGS: Equal air entry with no crackles, wheeze, rhonchi or dullness. CVS: Regular rate and rhythm, normal S1 and S2, no gallops, no murmurs, no rubs ABDOMEN: Soft, nontender. No hepatosplenomegaly, normal bowel sounds, no guarding or rigidity. EXTREMITIES: No clubbing, no edema, no cyanosis, 2+ pulses and upper and lower extremities. MUSCULOSKELETAL: Muscle strength and tone normal. SPINE: No scoliosis or deformity SKIN: No rashes CENTRAL NERVOUS SYSTEM: Alert and oriented -3. No focal deficits, tone is normal in all 4 extremities. PSYCHIATRIC: Alert and oriented -3. Appropriate affect. Intact judgment and insight. - Labs CBC & Chem 7: 07/10/19 03:50 07/10/19 03:50 Labs: Abnormal Lab Results - Last 24 Hours (Table) 07/10/19 07/10/19 Range/Units 03:50 03:50 RBC 2.40 L (4.30-5.90) m/uL Hgb 7.1 L (13.0-17.5) gm/dL Hct 21.6 L (39.0-53.0) % Sodium 136 L (137-145) mmol/L Chloride 110 H (98-107) mmol/L Calcium 7.7 L (8.4-10.2) mg/dL Assessment and Plan Plan: Assessment: 1:Upper GI bleeding, most likely secondary to peptic ulcer disease. Most likely secondary to chronic use of nonsteroidal anti-inflammatory drugs. EGD on 07/09/2019 showed a large duodenal ulcer with no active bleeding, it was injected with epinephrine and 2 endoclips were placed with no recurrence of GI bleeding so far 2: Severe anemia secondary to GI blood losses. Presently no active bleeding. Patient received a total of 3 units of packed RBCs since admission 3: Chronic back pain and chronic use of nonsteroidal anti-inflammatory drugs. 4: Constipation on presentation, resolved. Plan: Continue current medical treatment, hemodynamically patient is stable, no recurrence of bleeding overnight, hemoglobin is 7.1 on today's labs, his been started on clear liquid diet, no nausea, no vomiting, no acute complaints, chest pain or shortness of breath, we'll continue to monitor, continue PPI therapy. We'll continue to monitor in the intensive care unit I performed a history & physical examination of the patient and discussed their management with my nurse practitioner, Judi Gomez. I reviewed the nurse practitioner's note and agree with the documented findings and plan of care. Lung sounds are positive for clear breath sounds. The findings and the impression was discussed with the patient. I attest to the documentation by the nurse practitioner. Time with Patient: Less than 30
--- NOTE | 2019-07-10 14:10 | P.PN ---
Progress Note - Text Progress Note Date: 07/10/19 The patient was seen in the ICU today. He is sitting in chair. He has some minimal abdominal pain. His hematoma 7.1. There is been no evidence of any active GI bleed. On exam his vital signs are stable. His evidence soft. Patient has a healing large duodenal ulcer. He shows no evidence of repeat bleeding. He'll be observed closely. He'll remain on liquids.
--- NOTE | 2019-07-10 16:47 | PN ---
PROGRESS NOTE DATE OF DICTATION: 07/10/2019. BRIEF HISTORY: The patient is a 53-year-old pleasant white male admitted to the hospital with acute upper GI bleed. His initial hemoglobin was 12.3 and it subsequently dropped to 6.3, requiring 3 units of PRBC transfusion. Last hemoglobin is 7.1 g/dL. He underwent an upper endoscopy as well as colonoscopy by Dr. Selby yesterday that revealed a large duodenal bulbar ulcer, for which epinephrine was injected and Endoclips were placed. He also had a colonoscopy that showed small diminutive polyps but otherwise unremarkable. Presently on IV Protonix 40 mg twice a day, on a clear liquid diet. Did not have any bowel movements yesterday or today. Surgery has been consulted as a standby. He reports no abdominal pain. PHYSICAL EXAMINATION: He appears comfortable. No apparent distress. VITAL SIGNS: Stable. Blood pressure is 106/57, pulse 81, temperature 98. HEENT examination unremarkable. Conjunctivae pink. Sclerae anicteric. Oral cavity no lesions. NECK: No JVD or lymph node enlargement. CHEST: Clear to auscultation. HEART: Regular rate and rhythm. ABDOMEN: Soft. Bowel sounds are positive. No organomegaly. EXTREMITIES: No pedal edema. SKIN: No rashes. NEUROLOGIC: Alert and oriented x3. No focal deficits. LABS: Labs from today show WBC 7.7, hemoglobin 7.1, platelets 157. Basic metabolic panel is within normal limits. BUN is 11, creatinine 0.81. IMPRESSION: Acute gastrointestinal bleed, status post esophagogastroduodenoscopy and colonoscopy yesterday by Dr. Selby. The upper endoscopy revealed a large crater duodenal bulbar ulcer, for which he underwent epinephrine and Endoclip placement. So far patient is doing well. Hemoglobin stable at 7.1. No further episodes of bleeding. RECOMMENDATIONS: 1. Clear liquid diet. 2. Monitor CBC every 12 hours. 3. Transfuse if the hemoglobin is less than 7. 4. Agree with surgical consultation. 5. We will follow with you closely. Thank you for this consultation. MMBYRONL / LEEN: [id number] /
--- NOTE | 2019-07-10 21:04 | P.PN ---
Subjective Progress Note Date: 07/10/19 Principal diagnosis: Massive upper GI bleed 53-year-old admitted with GI bleed initially believed patient has lower GI bleed but today patient had hematemesis and dark stools patient had matter massive emesis patient became pale and patient was started given a couple liter boluses of IV fluid blood pressure dropped patient was transferred to ICU and transfused couple units of blood transfusion hemoglobin came down from 12-6 actually hemoglobin is probably less than less than 6 patient will be transfused 1 more unit of blood after which patient is clinically doing well now patient had a fall which she says because of the weakness in his legs gave up no injury was clinically appreciated patient denied any pain patient didn't hit his head. Patient will be continued on IV fluids and will receive another unit of blood. We'll closely monitor for any more GI bleed patient was started on Protonix. Patient feels much better now wanted to go to bathroom again by himself. 07/09/2019 Patient on upper GI endoscopy and colonoscopy which showed internal hemorrhoids and the duodenal ulcer, patient doesn't have any clinical GI bleed patient was monitored in ICU for 1 night possibility of discharge tomorrow on proton pulmonary with a continue with IV fluids. 07/10/2018 Patient is currently sitting in the chair comfortably. Abdominal pain is improved. No complaints of hematemesis or melena. Hemoglobin did drop to 7.1 today. Patient was started on clear liquid diet and has been tolerating well. Denied any complaints of nausea or vomiting. Patient is being continued on IV Protonix. No complains of chest pain or shortness of breath. Patient otherwise is awake a lert oriented 3. Gastroenterology and general surgery service is following. EGD and coloscopy Impression: 1. Large cratered ulcer in the duodenal bulb without active bleeding, however suspicion for visible vessel treated with epinephrine injection and Endo Clip placement 2. No other active bleeding or source of bleeding noted on upper endoscopy. 2. No active bleeding, or pathology to explain GI bleed noted and colonoscopy. There was a small amount of old hemolyzed blood throughout the colon likely from upper GI bleed. For also a few diminutive polyps, possibly representing hyperplastic polyps which were not removed in the setting of recent GI bleed. Constitutional: Denied any fatigue denied any fever. Cardio vascular: denied any chest pain, palpitations Gastrointestinal denied any nausea vomiting Pulmonary: Denied any shortness of breath cough Neurologic denied any new focal deficits Current medications reviewed. Objective - Vital Signs Vital signs: Vital Signs Temp 98.1 F 07/10/19 08:00 Pulse 69 07/10/19 12:00 Resp 14 07/10/19 12:00 BP 109/57 07/10/19 12:00 Pulse Ox 98 07/10/19 12:00 Intake & Output 07/09/19 07/10/19 07/10/19 18:59 06:59 18:59 Intake Total 2700 1100 1330 Output Total 1900 1550 825 Balance 800 -450 505 Weight 73.1 kg Intake: IV 2700 1100 500 Potassium Chloride 10 meq 200 In Water For Injection 1 100ml.bag @ 100 mls/hr IVPB Q1H [facility] Rx#: [id number] Sodium Chloride 0.9% 1, 1800 1100 500 000 ml @ 100 mls/hr IV . Q10H [facility] Rx#:[id number] Oral 830 Output: Urine 1900 1550 825 Other: Voiding Method Urinal Urinal - Exam PHYSICAL EXAMINATION: GENERAL: The patient is alert and oriented x3, not in any acute distress. Well developed, well nourished. Does look pale HEENT: Pupils are round and equally reacting to light. EOMI. No scleral icterus. Does have conjunctival pallor. Normocephalic, atraumatic. No pharyngeal erythema. No thyromegaly. CARDIOVASCULAR: S1 and S2 present. No murmurs, rubs, or gallops. PULMONARY: Chest is clear to auscultation, no wheezing or crackles. ABDOMEN: Soft, nontender, nondistended, normoactive bowel sounds. No palpable organomegaly. MUSCULOSKELETAL: No joint swelling or deformity. EXTREMITIES: No cyanosis, clubbing, or pedal edema. NEUROLOGICAL: Gross neurological examination did not reveal any focal deficits. SKIN: No rashes. Intact. - Labs CBC & Chem 7: 07/10/19 03:50 07/10/19 03:50 Labs: Abnormal Lab Results - Last 24 Hours (Table) 07/10/19 07/10/19 Range/Units 03:50 03:50 RBC 2.40 L (4.30-5.90) m/uL Hgb 7.1 L (13.0-17.5) gm/dL Hct 21.6 L (39.0-53.0) % Sodium 136 L (137-145) mmol/L Chloride 110 H (98-107) mmol/L Calcium 7.7 L (8.4-10.2) mg/dL Assessment and Plan Assessment: --Massive upper GI bleed probably secondary to Large cratered ulcer in the duodenal bulb without active bleeding. Status post EGD and colonoscopy. -Acute blood loss anemia secondary to GI bleed. -Abdominal pain secondary to duodenal ulcer improved now. -Syncope secondary to massive GI bleed. -chronic low back -Nicotine abuse: Counseling was provided Plan: Patient will be continued on IV hydration and Protonix IV twice a day. Monitor H&H and she is a hemoglobin is less than 7. Patient was started on clear liquid diet. Patient will need GI follow-up with repeat endoscopy in 3-6 months for polypectomy. Further recommendations based on the clinical course. Time with Patient: Greater than 30
[2019-07-11 05:12] LABS: HCT 21.9 % (39.0-53.0); MCH 29.8 pg (25.0-35.0); MCHC 32.2 g/dL (31.0-37.0); MCV 92.6 fL (80.0-100.0); Mean Platelet Volume 9.5; Platelet Count 179 k/uL (150-450); RBC 2.36 m/uL (4.30-5.90); RDW 14.6 % (11.5-15.5); WBC 6.3 k/uL (3.8-10.6)
[2019-07-11 05:23] LABS: African American GFR (CKD) >90 (>60 ml/min/1.73 sqM); Anion Gap 4 mmol/L; Blood Urea Nitrogen 7 mg/dL (9-20); Calcium 7.7 mg/dL (8.4-10.2); Carbon Dioxide 23 mmol/L (22-30); Chloride 111 mmol/L (98-107); Glucose 86 mg/dL (74-99); Non-African American GFR(CKD) >90 (>60 ml/min/1.73 sqM); Potassium 3.9 mmol/L (3.5-5.1); Sodium 138 mmol/L (137-145)
[2019-07-11] MEDS ORDERED: Potassium Replacement Protocol 1 EACH MISC MISCELLANE PRN (05:26)
[2019-07-11] MEDS: SODIUM CHLORIDE 0.9% 1,000 ML IV SCH (07:58)
[2019-07-11] MEDS: PANTOPRAZOLE 40 MG/10 ML VIAL IVP SCH ×2 (08:07→20:00)
--- NOTE | 2019-07-11 08:23 | P.PN ---
Subjective Progress Note Date: 07/11/19 Principal diagnosis: Acute upper GI bleeding this is a 53-year-old white male with history of chronic low back pain related to work injury. Patient is on significant amount of nonsteroidal anti- inflammatory drugs which she takes on a daily basis to relieve his back pain. Patient had no previous history of gastric ulcer disease. No previous history of GI bleeding. He presented to the ER mostly with intermittent episodes of nausea vomiting and constipation for the last 1 week. Patient was also describing some vague lower abdominal pain. And upon evaluation the patient was felt to be constipated. He was given laxatives, and he felt much better after he had a bowel movement. However early this morning, the patient had an episode of significant emesis, bright red blood emesis and later was coffee-ground. His hemoglobin dropped almost 6 g from the time of admission. Hence arrangements were made for the patient be transferred to the ICU, and I was asked to see him on consultation. Blood was ordered. Fluids were given. Protonix was ordered. GI consultation was done, and he may require EGD today. Considering the amount of bleeding within a very short period of time, I did recommend surgical consultation for backup in case his condition gets much worse.during my evaluation, the patient was hemodynamically stable. He was having intermittent episodes of dark stools, but no active emesis. Reevaluated today on 07/09/2019, patient remains in the ICU, no major bleeding issues in the last 24 hours. Patient received a total of 3 units of packed RBCs since yesterday when he had his major upper GI bleed. Scheduled to undergo EGD and colonoscopy today. Patient is hemodynamically stable, remains on Protonix. His hemoglobin this morning is 7.5. Yesterday was 9.4. Again clinically the patient has no active bleeding, and I'm suspecting that the patient has peptic ulcer disease secondary to nonsteroidal anti-inflammatory drugs that he has been using for a long time with relatively high doses. On 07/10/2019 and is seen in follow-up in the intensive care unit, he is awake and alert, and at 3, no acute distress, no bleeding overnight. No hematemesis, no melena, no hematochezia. Today's labs have been reviewed showing hemoglobin of 7.1, white blood cell count of 7.7, renal profile is within normal limits, sodium is 136, chloride is 110, demonstrated electrolytes are unremarkable. Patient had the EGD/colonoscopy yesterday on 07/09/2019 and a large cratered ulcer in the duodenal bulb without active bleeding was found which was injected with epinephrine and Endo Clips were placed 2. No active bleeding or pathology noted on colonoscopy other than a few diminutive polyps which were not removed in the setting of recent GI bleeding. Hemodynamically she remains stable, is tolerating clear liquid diet this morning, no nausea, no abdominal pain, is on IV Protonix, 0.9 normal saline infusing at a rate of 100 ML per hour, no acute complaints, no shortness of breath or chest pain. Sinus rhythm on a monitor. On 07/11/2019 patient seen in follow-up in the intensive care unit, he is awake and alert, oriented 3, in no acute distress, denies any chest pain no shortness of breath, no abdominal discomfort. He is tolerating clear liquid diet, no further bleeding in the last 48 hours, today's hemoglobin is 7.0. Hemodynamically patient is stable, he is on room air, his pulse ox is 98%, maintenance IV 0.9 normal saline at a rate of 100, remains on PPI therapy, sinus rhythm on the monitor with a controlled rate Objective - Vital Signs Vital signs: Vital Signs Temp 98.3 F 07/11/19 08:00 Pulse 78 07/11/19 08:00 Resp 13 07/11/19 08:00 BP 114/69 07/11/19 08:00 Pulse Ox 98 07/11/19 08:00 Intake & Output 07/10/19 07/11/19 07/11/19 18:59 06:59 18:59 Intake Total 3180 1300 440 Output Total 1225 1750 225 Balance 1955 -450 215 Weight 70.7 kg Intake: IV 1200 1100 Sodium Chloride 0.9% 1, 1200 1100 000 ml @ 100 mls/hr IV . Q10H [facility] Rx#:[id number] Oral 1980 200 440 Output: Urine 1225 1750 225 Other: Voiding Method Urinal Urinal - Exam GENERAL EXAM: Alert, very pleasant, 53-year-old on room air, with a pulse ox of 97-99% comfortable in no apparent distress. HEAD: Normocephalic/atraumatic. EYES: Normal reaction of pupils, equal size. Conjunctiva pink, sclera white. NOSE: Clear with pink turbinates. THROAT: No erythema or exudates. NECK: No masses, no JVD, no thyroid enlargement, no adenopathy. CHEST: No chest wall deformity. Symmetrical expansion. LUNGS: Equal air entry with no crackles, wheeze, rhonchi or dullness. CVS: Regular rate and rhythm, normal S1 and S2, no gallops, no murmurs, no rubs ABDOMEN: Soft, nontender. No hepatosplenomegaly, normal bowel sounds, no guarding or rigidity. EXTREMITIES: No clubbing, no edema, no cyanosis, 2+ pulses and upper and lower extremities. MUSCULOSKELETAL: Muscle strength and tone normal. SPINE: No scoliosis or deformity SKIN: No rashes CENTRAL NERVOUS SYSTEM: Alert and oriented -3. No focal deficits, tone is normal in all 4 extremities. PSYCHIATRIC: Alert and oriented -3. Appropriate affect. Intact judgment and insight. - Labs CBC & Chem 7: 07/11/19 04:23 07/11/19 04:26 Labs: Abnormal Lab Results - Last 24 Hours (Table) 07/11/19 07/11/19 Range/Units 04:23 04:26 RBC 2.36 L (4.30-5.90) m/uL Hgb 7.0 L (13.0-17.5) gm/dL Hct 21.9 L (39.0-53.0) % Chloride 111 H (98-107) mmol/L BUN 7 L (9-20) mg/dL Calcium 7.7 L (8.4-10.2) mg/dL Assessment and Plan Plan: Assessment: 1:Upper GI bleeding, most likely secondary to peptic ulcer disease. Most likely secondary to chronic use of nonsteroidal anti-inflammatory drugs. EGD on 07/09/2019 showed a large duodenal ulcer with no active bleeding, it was injecte d with epinephrine and 2 endoclips were placed with no recurrence of GI bleeding so far 2: Severe anemia secondary to GI blood losses. Presently no active bleeding. Patient received a total of 3 units of packed RBCs since admission 3: Chronic back pain and chronic use of nonsteroidal anti-inflammatory drugs. 4: Constipation on presentation, resolved. Plan: Patient is doing well, no recurrent GI bleeding, today's hemoglobin is 7.0, hemodynamically stable, will DC the IV fluids, he is tolerating clear liquid diet, we'll advance diet per GI service recommendations. No acute events overnight, remains on PPI therapy, patient is stable to transfer out of the intensive care unit today to general medical floor I performed a history & physical examination of the patient and discussed their management with my nurse practitioner, Judi Gomez. I reviewed the nurse practitioner's note and agree with the documented findings and plan of care. Lung sounds are positive for clear breath sounds. The findings and the impression was discussed with the patient. I attest to the documentation by the nurse practitioner. Time with Patient: Less than 30
[2019-07-11] MEDS ORDERED: POTASSIUM CHLORIDE ER 20 MEQ TAB.ER PO SCH (09:00)
[2019-07-11 09:41] VITALS: BMI 24.4
--- NOTE | 2019-07-11 12:22 | P.PN ---
Progress Note - Text Progress Note Date: 07/11/19 The patient's hemoglobin has been stable in the 7 range. He has not shown any evidence of GI bleed. On exam his vital signs are stable. His abdomen soft. Status post massive GI bleed secondary to duodenal ulcer. Patient will be closely observed. He'll remain on clear liquids.
--- NOTE | 2019-07-11 15:56 | PN ---
PROGRESS NOTE DATE OF DICTATION: 07/11/2019 Patient is a 53-year-old pleasant white male admitted to the hospital with acute upper GI bleed. He underwent an EGD and colonoscopy by Dr. Selby. Upper endoscopy revealed a large duodenal bulbar ulcer, for which he underwent endoscopic Endoclip placement as well as injection epinephrine 2 days ago. He is doing better. He was transferred from the intensive care unit. No further episodes of bleeding. Hemoglobin is 7 grams/dL. PHYSICAL EXAMINATION: He appears comfortable. No apparent distress. Vital signs are stable. Blood pressure 114/69, pulse rate 78, temperature 98.3. HEENT examination unremarkable. Conjunctivae pink. Sclerae anicteric. Oral cavity no lesions. NECK: No JVD or lymph node enlargement. CHEST: Clear to auscultation. HEART: Regular rate and rhythm. ABDOMEN: Soft. Bowel sounds are positive. No organomegaly. EXTREMITIES: No pedal edema. SKIN: No rashes. NEUROLOGIC: Alert and oriented x3. No focal deficits. LAB DATA: Labs today show WBC 6.3, hemoglobin 7, platelets normal. Basic metabolic panel showed a BUN of 7, creatinine 0.81. IMPRESSION: Acute upper gastrointestinal bleed, status post esophagogastroduodenoscopy 2 days ago that showed a large duodenal bulbar ulcer, status post injection epinephrine and Endoclip placement. So far patient doing well. No further episodes of bleeding. Hemoglobin remains stable at 7 g/dL. RECOMMENDATIONS: 1. Continue with Protonix 40 mg q.12 hours. 2. Agree with one more unit of PRBC transfusion. 3. Advance to a full liquid diet. 4. Repeat CBC in the morning and if he is stable, diet can be advanced further. Thank you for this consultation. MMODL / IJN: [id number] /
[2019-07-11 18:32] LABS: HCT 23.5 % (39.0-53.0); HGB 7.7 gm/dL (13.0-17.5); MCH 30.5 pg (25.0-35.0); MCHC 32.9 g/dL (31.0-37.0); MCV 92.6 fL (80.0-100.0); Platelet Count 229 k/uL (150-450); RBC 2.54 m/uL (4.30-5.90); RDW 14.8 % (11.5-15.5)
[2019-07-12 07:53] LABS: Basophils % (A) 0 %; Eosinophils # (A) 0.1 k/uL (0-0.7); Eosinophils % (A) 1 %; HCT 25.3 % (39.0-53.0); HGB 8.1 gm/dL (13.0-17.5); Lymphocytes # (A) 2.8 k/uL (1.0-4.8); Lymphocytes % (A) 32 %; MCH 29.7 pg (25.0-35.0); MCV 92.9 fL (80.0-100.0); Mean Platelet Volume 8.7; Monocytes # (A) 0.5 k/uL (0-1.0); Monocytes % (A) 6 %; Neutrophils # (A) 5.1 k/uL (1.3-7.7); Neutrophils % (A) 59 %; Platelet Count 305 k/uL (150-450); RBC 2.72 m/uL (4.30-5.90); RDW 14.7 % (11.5-15.5); WBC 8.7 k/uL (3.8-10.6)
[2019-07-12] MEDS: HYDROcodone/APAP 5-325MG 1 EACH TAB PO PRN (08:36)
[2019-07-12] MEDS: PANTOPRAZOLE 40 MG/10 ML VIAL IVP SCH ×2 (08:38→09:25)
[2019-07-12] MEDS ORDERED: PANTOPRAZOLE 40 MG TABLET PO STA (09:28)
--- NOTE | 2019-07-12 10:15 | P.PN ---
Subjective Progress Note Date: 07/12/19 CHIEF COMPLAINT: GI bleed HISTORY OF PRESENT ILLNESS: Patient examined at the bedside. He denies abdominal pain. No evidence of further GI bleeding. Hemoglobin stable. Tolerating regular diet. He is anxious to be discharged home. PHYSICAL EXAM: VITAL SIGNS: Reviewed. GENERAL: Well-developed in no acute distress. HEENT: No sclera icterus. Extraocular movements grossly intact. Moist buccal mucosa. Head is atraumatic, normocephalic. ABDOMEN: Soft. Nondistended. Nontender. NEUROLOGIC: Alert and oriented. Cranial nerves II through XII grossly intact. ASSESSMENT: 1. GI bleed secondary to duodenal ulcer PLAN: Continue diet as tolerated. Monitor hemoglobin. Patient is very anxious to be discharged home today. May be discharged from a surgical standpoint when deemed stable per internal medicine. We will sign off. Please re-consult if needed Nurse practitioner note has been reviewed by physician. Signing provider agrees with the documented findings, assessment, and plan of care. Objective - Vital Signs Vital signs: Vital Signs Temp 98.5 F 07/12/19 04:48 Pulse 67 07/12/19 04:48 Resp 16 07/12/19 04:48 BP 109/67 07/12/19 04:48 Pulse Ox 100 07/12/19 04:48 Intake & Output 07/11/19 07/12/19 07/12/19 18:59 06:59 18:59 Intake Total 4120 1310 Output Total 1075 Balance 3045 1310 Weight 70.7 kg Intake: IV 800 Sodium Chloride 0.9% 1, 800 000 ml @ 100 mls/hr IV . Q10H [id number] Rx#:[id number] Oral 3320 1310 Output: Urine 875 Stool 200 Other: Voiding Method Urinal Urinal # Voids 4 1 - Labs CBC & Chem 7: 07/12/19 07:16 07/11/19 04:26 Labs: Abnormal Lab Results - Last 24 Hours (Table) 07/11/19 07/11/19 07/12/19 Range/Units 15:07 18:13 07:16 RBC 2.54 L 2.72 L (4.30-5.90) m/uL Hgb 7.7 L 8.1 L (13.0-17.5) gm/dL Hct 23.5 L 25.3 L (39.0-53.0) % Crossmatch See Detail
[2019-07-12 11:38] VITALS: BP 127/76; PULSE 69; RESP 18; TEMP 97.8
--- NOTE | 2019-07-12 13:07 | P.PN ---
Subjective Progress Note Date: 07/12/19 Principal diagnosis: Acute upper GI bleeding this is a 53-year-old white male with history of chronic low back pain related to work injury. Patient is on significant amount of nonsteroidal anti- inflammatory drugs which she takes on a daily basis to relieve his back pain. Patient had no previous history of gastric ulcer disease. No previous history of GI bleeding. He presented to the ER mostly with intermittent episodes of nausea vomiting and constipation for the last 1 week. Patient was also describing some vague lower abdominal pain. And upon evaluation the patient was felt to be constipated. He was given laxatives, and he felt much better after he had a bowel movement. However early this morning, the patient had an episode of significant emesis, bright red blood emesis and later was coffee-ground. His hemoglobin dropped almost 6 g from the time of admission. Hence arrangements were made for the patient be transferred to the ICU, and I was asked to see him on consultation. Blood was ordered. Fluids were given. Protonix was ordered. GI consultation was done, and he may require EGD today. Considering the amount of bleeding within a very short period of time, I did recommend surgical consultation for backup in case his condition gets much worse.during my evaluation, the patient was hemodynamically stable. He was having intermittent episodes of dark stools, but no active emesis. Reevaluated today on 07/09/2019, patient remains in the ICU, no major bleeding issues in the last 24 hours. Patient received a total of 3 units of packed RBCs since yesterday when he had his major upper GI bleed. Scheduled to undergo EGD and colonoscopy today. Patient is hemodynamically stable, remains on Protonix. His hemoglobin this morning is 7.5. Yesterday was 9.4. Again clinically the patient has no active bleeding, and I'm suspecting that the patient has peptic ulcer disease secondary to nonsteroidal anti-inflammatory drugs that he has been using for a long time with relatively high doses. On 07/10/2019 and is seen in follow-up in the intensive care unit, he is awake and alert, and at 3, no acute distress, no bleeding overnight. No hematemesis, no melena, no hematochezia. Today's labs have been reviewed showing hemoglobin of 7.1, white blood cell count of 7.7, renal profile is within normal limits, sodium is 136, chloride is 110, demonstrated electrolytes are unremarkable. Patient had the EGD/colonoscopy yesterday on 07/09/2019 and a large cratered ulcer in the duodenal bulb without active bleeding was found which was injected with epinephrine and Endo Clips were placed 2. No active bleeding or pathology noted on colonoscopy other than a few diminutive polyps which were not removed in the setting of recent GI bleeding. Hemodynamically she remains stable, is tolerating clear liquid diet this morning, no nausea, no abdominal pain, is on IV Protonix, 0.9 normal saline infusing at a rate of 100 ML per hour, no acute complaints, no shortness of breath or chest pain. Sinus rhythm on a monitor. On 07/11/2019 patient seen in follow-up in the intensive care unit, he is awake and alert, oriented 3, in no acute distress, denies any chest pain no shortness of breath, no abdominal discomfort. He is tolerating clear liquid diet, no further bleeding in the last 48 hours, today's hemoglobin is 7.0. Hemodynamically patient is stable, he is on room air, his pulse ox is 98%, maintenance IV 0.9 normal saline at a rate of 100, remains on PPI therapy, sinus rhythm on the monitor with a controlled rate On 07/12/2019 patient seen in follow-up on general medical floor, he is ambulating about the room, in no acute distress, there has been no recurrence of bleeding, today's hemoglobin is 8.1, patient is tolerating his diet, no nausea, no vomiting, no diarrhea. No complaints of abdominal pain, remains on PPI therapy, no maintenance IVs, acute events overnight, patient is anticipated to be discharged home today. Objective - Vital Signs Vital signs: Vital Signs Temp 97.8 F 07/12/19 11:23 Pulse 69 07/12/19 11:23 Resp 18 07/12/19 11:23 BP 127/76 07/12/19 11:23 Pulse Ox 100 07/12/19 11:23 Intake & Output 07/11/19 07/12/19 07/12/19 18:59 06:59 18:59 Intake Total 4120 1310 2520 Output Total 1075 Balance 3045 1310 2520 Weight 70.7 kg Intake: IV 800 Sodium Chloride 0.9% 1, 800 000 ml @ 100 mls/hr IV . Q10H [facility] Rx#:[id number] Oral 3320 1310 2520 Output: Urine 875 Stool 200 Other: Voiding Method Urinal Urinal Urinal # Voids 4 1 3 # Bowel Movements 0 - Exam GENERAL EXAM: Alert, very pleasant, 53-year-old on room air, with a pulse ox of 97-99% comfortable in no apparent distress. HEAD: Normocephalic/atraumatic. EYES: Normal reaction of pupils, equal size. Conjunctiva pink, sclera white. NOSE: Clear with pink turbinates. THROAT: No erythema or exudates. NECK: No masses, no JVD, no thyroid enlargement, no adenopathy. CHEST: No chest wall deformity. Symmetrical expansion. LUNGS: Equal air entry with no crackles, wheeze, rhonchi or dullness. CVS: Regular rate and rhythm, normal S1 and S2, no gallops, no murmurs, no rubs ABDOMEN: Soft, nontender. No hepatosplenomegaly, normal bowel sounds, no guarding or rigidity. EXTREMITIES: No clubbing, no edema, no cyanosis, 2+ pulses and upper and lower extremities. MUSCULOSKELETAL: Muscle strength and tone normal. SPINE: No scoliosis or deformity SKIN: No rashes CENTRAL NERVOUS SYSTEM: Alert and oriented -3. No focal deficits, tone is n ormal in all 4 extremities. PSYCHIATRIC: Alert and oriented -3. Appropriate affect. Intact judgment and insight. - Labs CBC & Chem 7: 07/12/19 07:16 07/11/19 04:26 Labs: Abnormal Lab Results - Last 24 Hours (Table) 07/11/19 07/11/19 07/12/19 Range/Units 15:07 18:13 07:16 RBC 2.54 L 2.72 L (4.30-5.90) m/uL Hgb 7.7 L 8.1 L (13.0-17.5) gm/dL Hct 23.5 L 25.3 L (39.0-53.0) % Crossmatch See Detail Assessment and Plan Plan: Assessment: 1:Upper GI bleeding, most likely secondary to peptic ulcer disease. Most likely secondary to chronic use of nonsteroidal anti-inflammatory drugs. EGD on 07/09/2019 showed a large duodenal ulcer with no active bleeding, it was injected with epinephrine and 2 endoclips were placed with no recurrence of GI bleeding so far 2: Severe anemia secondary to GI blood losses. Presently no active bleeding. Patient received a total of 3 units of packed RBCs since admission 3: Chronic back pain and chronic use of nonsteroidal anti-inflammatory drugs. 4: Constipation on presentation, resolved. Plan: Patient is doing well, vital signs are stable, there has been no recurrence of bleeding, he is tolerating his oral diet, no abdominal pain, he is ambulating, vital signs are stable, he is anticipated to be discharged home today. I performed a history & physical examination of the patient and discussed their management with my nurse practitioner, Judi Gomez. I reviewed the nurse practitioner's note and agree with the documented findings and plan of care. Lung sounds are positive for clear breath sounds. The findings and the impression was discussed with the patient. I attest to the documentation by the nurse practitioner. Time with Patient: Less than 30
--- NOTE | 2019-07-12 14:11 | P.DS ---
Providers Date of admission: 07/08/19 11:22 Expected date of discharge: 07/12/19 Attending physician: Celestine Baird MD Consults: 07/07/19 08:36 Consult Physician Urgent Consulting Provider: Sang Selby Consult Reason/Comments: Abdominal pain, rectal bleeding Do you want consulting provider notified?: Yes 07/08/19 10:07 Consult Physician Urgent Consulting Provider: Kody Acosta Consult Reason/Comments: ICU management - GI Bleed Do you want consulting provider notified?: Yes 07/08/19 11:32 Consult Physician Urgent Consulting Provider: Kev England Consult Reason/Comments: coffe ground emesis, GI bleed, 6 gm hgb drop Do you want consulting provider notified?: Yes Primary care physician: Stated None Hospital Course: Final diagnosis -Massive upper GI bleed probably secondary to Large cratered ulcer in the duodenal bulb -Acute blood loss anemia secondary to GI bleed. -Abdominal pain secondary to duodenal ulcer. -Syncope secondary to massive GI bleed. -chronic low back -Nicotine abuse: Counseling was provided Discharge disposition Patient is being discharged in a stable condition with guarded prognosis to home and will follow-up with primary care provider in the outpatient setting. Resources were given as patient did not have a current primary care provider. Patient will also follow-up with GI in 2 weeks. Patient continue with Protonix 40 mg twice daily until follow-up. Total time taken is 35 minutes. History of present illness This is a 53-year-old male who was recently admitted with GI bleeding and was being closely monitored. During hospitalization patient was in the ICU briefly for low hemoglobin and close monitoring and was transfused 3 units of PRBCs throughout admission. Today's hemoglobin is . Patient will need repeat labs in 2-3 days. Patient currently does not have a primary care provider and resources were provided. Patient's girlfriend at the bedside has also been looking into primary care providers. Multiple medical consultations were following. During hospitalization patient underwent an EGD and colonoscopy showing a large cratered ulcer in the duodenal bulb and was treated with epinephrine injection along with endoclips 2 with no active bleeding at the time. During colonoscopy a few diminutive polyps were noted and patient will follow-up with GI in the outpatient setting once hemoglobin has stabilized for polyp removal. Patient will continue on oral Protonix 40 mg twice daily until follow-up. Currently patient's condition is stable and is ready for discharge today. Patient denies any chest pain, shortness of breath, or palpitations. Patient is afebrile. Patient denies any nausea or vomiting and has been tolerating diet. Patient is passing gas but states he has not had a bowel move ment yet. Patient instructed to repeat labs in a few days to monitor hemoglobin and if any new bleeding is noted to return to the ER. Patient verbalized understanding and agrees with this plan. Patient also instructed to limit activity until follow-up and take it easy for a couple of days and encouraged oral intake. Patient also instructed to avoid NSAIDs. On exam vital signs are stable. Temp is 97.8F, pulse is 69, respirations are 18, blood pressure is 127/76, oxygen saturation is 100% on room air. Cardio S1, S2 are present. Respiratory system shows clear to auscultation. Abdomen is soft and nontender. Nervous system shows no focal deficits. Please refer to medication reconciliation sheet for a list of medications. Patient Condition at Discharge: Fair Plan - Discharge Summary Discharge Rx Participant: No New Discharge Prescriptions: New Polyethylene Glycol 3350 [Miralax] 17 gm PO DAILY PRN #10 powd.pack PRN Reason: Constipation Pantoprazole [Protonix] 40 mg PO AC-BID 30 Days #60 tablet. Discontinued Ibuprofen [Advil] 400 mg PO Q6H PRN PRN Reason: Pain Discharge Medication List Pantoprazole [Protonix] 40 mg PO AC-BID 30 Days #60 tablet. 07/12/19 [Rx] Polyethylene Glycol 3350 [Miralax] 17 gm PO DAILY PRN #10 powd.pack 07/12/19 [Rx] Follow up Appointment(s)/Referral(s): Suzette Mixon MD [STAFF PHYSICIAN] - 07/31/19 3:15 pm (please be at the office by 3:00 pm) Kev England MD [STAFF PHYSICIAN] - 07/25/19 2:15 pm Ambulatory/Diagnostic Orders: Complete Blood Count w/diff [LAB.AMB] Time Frame: 2 Days, Location: None Selected Activity/Diet/Wound Care/Special Instructions: Activity Limited until follow-up Continue current diet Follow-up with primary care provider upon discharge Follow-up with GI in 1-2 weeks as scheduled Repeat labs in 2 days Avoid Motrin and NSAIDs Discharge Disposition: HOME SELF-CARE
--- NOTE | 2019-07-12 14:13 | PN ---
PROGRESS NOTE DATE OF DICTATION: 07/12/2019 Patient is a 53-year-old pleasant white male admitted to the hospital with acute upper GI bleed. EGD done by Dr. Selby showed duodenal bulbar ulcer. Presently on Protonix 40 mg twice daily, doing well. No further bleeding. On a regular diet, tolerating well. Wants to go home. PHYSICAL EXAMINATION: Appears comfortable. Blood pressure is 132/76, pulse rate 69, temperature 97.8. HEENT: Examination unremarkable, conjunctivae are pink. Sclerae nonicteric, oral cavity no lesions. NECK: No JVD or lymph node enlargement. CHEST: Clear to auscultation. HEART: Regular rate and rhythm. ABDOMEN: Soft. Bowel sounds are positive. No organomegaly. EXTREMITIES: No pedal edema. SKIN: No rashes. NEUROLOGIC: Alert and oriented x3. No focal deficits. LABS: WBC 8.7, hemoglobin 8.1, platelets normal. IMPRESSION: Acute upper gastrointestinal bleed, status post EGD 3 days ago that showed a large duodenal bulbar ulcer. Presently no further episodes of bleeding. Hemoglobin stable for 3 days on Protonix 40 mg twice daily. RECOMMENDATIONS: 1. The patient can be discharged home today. 2. Avoid NSAIDs. 3. Protonix 40 mg twice daily. 4. Follow up in the office in 2 weeks. Thank you for this consultation. MMODL / LEEN: [id number] /
[2019-07-12] MEDS ORDERED: PANTOPRAZOLE 40 MG TABLET PO SCH (17:30)
== END 2019-07-12 14:00 | disposition home or self-care (01) | DRG 378 ==
LOC: EC 05:35 → 3SCARD 09:20 → 2SICU 07-08 10:19 → OBSVTOIN 07-08 11:22 → 5NMEDONC 07-11 10:55
PROVIDERS: ADMIT Internal Medicine; ATTEND Internal Medicine
PROC: 30233N1 Transfusion of Nonautologous Red Blood Cells into Peripheral Vein, Percutaneous Approach (ICD-10-PCS; 2019-07-08)
PROC: 0DJD8ZZ Inspection of Lower Intestinal Tract, Via Natural or Artificial Opening Endoscopic (ICD-10-PCS; principal; 2019-07-09 11:00)
PROC: 0W3P8ZZ Control Bleeding in Gastrointestinal Tract, Via Natural or Artificial Opening Endoscopic (ICD-10-PCS; principal; 2019-07-09 11:00)
PROC: 3E0G8GC Introduction of Other Therapeutic Substance into Upper GI, Via Natural or Artificial Opening Endoscopic (ICD-10-PCS; principal; 2019-07-09 11:00)
DX: K26.4 Chronic or unspecified duodenal ulcer with hemorrhage (principal); D62 Acute posthemorrhagic anemia; E87.2 Acidosis; E86.0 Dehydration; K63.5 Polyp of colon; F17.210 Nicotine dependence, cigarettes, uncomplicated; G89.29 Other chronic pain; K56.41 Fecal impaction; K64.8 Other hemorrhoids; T39.395A Adverse effect of other nonsteroidal anti-inflammatory drugs [NSAID], initial encounter; M54.5 Low back pain; R55 Syncope and collapse; Z71.6 Tobacco abuse counseling
CPT/HCPCS: 36415; 43243; 43255; 45378; 71045; 71046; 74019; 74177; 80048; 80053; 81001; 83605; 83735; 84484; 85025; 85027; 85610; 85730; 86850; 86900; 86901; 86920; 93005; 93306; 99285

== ENCOUNTER → 2019-07-14 | Outpatient (CLI) | payer BC ==
[2019-07-14 12:57] LABS: Basophils % (A) 1 %; Eosinophils # (A) 0.1 k/uL (0-0.7); Eosinophils % (A) 1 %; Hypochromasia Slight; Lymphocytes # (A) 1.5 k/uL (1.0-4.8); Lymphocytes % (A) 21 %; MCHC 31.9 g/dL (31.0-37.0); Mean Platelet Volume 8.3; Monocytes # (A) 0.4 k/uL (0-1.0); Monocytes % (A) 5 %; Neutrophils # (A) 5.2 k/uL (1.3-7.7); Neutrophils % (A) 71 %; Platelet Count 424 k/uL (150-450); RBC 2.66 m/uL (4.30-5.90); RDW 14.8 % (11.5-15.5); WBC 7.3 k/uL (3.8-10.6)
== END ==
LOC: LABWHC1 11:16
PROVIDERS: ATTEND Registered Nurse
DX: D64.9 Anemia, unspecified (principal); K92.2 Gastrointestinal hemorrhage, unspecified
CPT/HCPCS: 36415; 85025

== ENCOUNTER → 2019-08-09 | Outpatient (CLI) | payer BC ==
[2019-08-09 15:03] LABS: HCT 32.6 % (39.0-53.0); Hypochromasia Marked; MCH 25.8 pg (25.0-35.0); MCHC 29.1 g/dL (31.0-37.0); Mean Platelet Volume 8.9; Platelet Count 293 k/uL (150-450); Poikilocytosis Moderate; RBC 3.68 m/uL (4.30-5.90); RDW 15.1 % (11.5-15.5); WBC 6.9 k/uL (3.8-10.6)
[2019-08-09 15:06] LABS: HGB 9.5 gm/dL (13.0-17.5); MCV 88.8 fL (80.0-100.0)
[2019-08-09 20:50] LABS: % Iron Saturation 7.02 (15.00-50.00); African American GFR (CKD) 79.5 (60.0-200.0); Albumin 4.3 g/dL (3.80-4.90); Albumin/Globulin Ratio 2.87 (1.60-3.17); Calcium 9.1 mg/dL (8.7-10.3); Ferritin 4.8 ng/mL (22.0-322.0); Globulin 1.5 g/dL (1.6-3.3); Non-African American GFR(CKD) 68.6 (60.0-200.0); Total Bilirubin 0.4 mg/dL (0.3-1.2); Total Protein 5.8 g/dL (6.2-8.2)
== END | disposition home or self-care (01) ==
LOC: LABWHC1 14:37
PROVIDERS: ATTEND Family Medicine
DX: K92.89 Other specified diseases of the digestive system (principal); D50.9 Iron deficiency anemia, unspecified
CPT/HCPCS: 36415; 80053; 82607; 82728; 82747; 83540; 83550; 85027

== ENCOUNTER 2021-06-30 16:43 | Emergency (ER) | payer BC ==
[2021-06-30 17:13] VITALS: TEMP 99.5
--- NOTE | 2021-06-30 17:56 | XR ---
EXAM: Abdomen radiograph. HISTORY: Pain and hematemesis. TECHNIQUE: Upper AP view. COMPARISON: 07/08/2019 FINDINGS: There are nondilated bowel loops with a nonobstructive pattern. No pneumoperitoneum. There are no pat hologic calcifications. No acute osseous abnormality seen. IMPRESSION: No acute process.
[2021-06-30 18:21] LABS: Basophils % (A) 0 %; Eosinophils # (A) 0.1 k/uL (0-0.7); Eosinophils % (A) 1 %; HCT 52.7 % (39.0-53.0); HGB 17.7 gm/dL (13.0-17.5); Lymphocytes # (A) 0.9 k/uL (1.0-4.8); Lymphocytes % (A) 10 %; MCH 30.3 pg (25.0-35.0); MCHC 33.6 g/dL (31.0-37.0); MCV 90.2 fL (80.0-100.0); Mean Platelet Volume 9.2; Monocytes # (A) 0.5 k/uL (0-1.0); Monocytes % (A) 6 %; Neutrophils # (A) 7.3 k/uL (1.3-7.7); Neutrophils % (A) 82 %; Platelet Count 217 k/uL (150-450); RBC 5.85 m/uL (4.30-5.90); RDW 13.7 % (11.5-15.5); WBC 8.9 k/uL (3.8-10.6)
[2021-06-30 18:30] LABS: ALT 22 U/L (4-49); AST 27 U/L (17-59); African American GFR (CKD) >90 (>60 ml/min/1.73 sqM); Alkaline Phosphatase 98 U/L (38-126); Amylase 83 U/L (30-110); Anion Gap 14 mmol/L; Blood Urea Nitrogen 23 mg/dL (9-20); Calcium 10.6 mg/dL (8.4-10.2); Carbon Dioxide 26 mmol/L (22-30); Chloride 98 mmol/L (98-107); Glucose 133 mg/dL (74-99); Lipase 99 U/L (23-300); Non-African American GFR(CKD) >90 (>60 ml/min/1.73 sqM); Sodium 138 mmol/L (137-145); Total Bilirubin 1.1 mg/dL (0.2-1.3); Total Protein 8.6 g/dL (6.3-8.2)
[2021-06-30] MEDS ORDERED: SODIUM CHLORIDE 0.9% 1,000 ML IV STA (20:16)
[2021-06-30] MEDS ORDERED: ONDANSETRON 4 MG/2 ML VIAL IVP STA (20:16)
--- NOTE | 2021-06-30 20:31 | ED ---
Abdominal Pain HPI - General Chief Complaint: Abdominal Pain Stated Complaint: Abd Pain Time Seen by Provider: 06/30/21 20:15 Source: patient, RN notes reviewed Mode of arrival: wheelchair Limitations: no limitations - History of Present Illness Initial Comments: This is a pleasant 55-year-old male with a history of peptic ulcer disease. In fact, patient had a perforated ulcer repair done here in 2019. Patient states he's been vomiting intermittently for the past 3 days. Yesterday he noticed a few small flecks of red blood. Patient states this morning he also had a recurrence of the flexor blood. He has vomited a few times since then which has been only bilious. Complaining of some generalized pain which is mostly upper abdomen. Does go through to the back times. No chest pain or shortness of breath. Patient no longer taking a proton pump inhibitor. Denies any alcohol intake. No blood thinners. Denies any bright red blood per rectum or melena. No headache, no fever or chills, no changes in vision or hearing, no sore throat or difficulty with speech, no neck pain, no chest pain or shortness of breath, no changes in urination or bowel movements, no numbness or tingling, no extremity pain, no skin rashes or lesions. - Related Data Previous Rx's Medication Instructions Recorded Ondansetron [Zofran ODT] 4 mg PO Q8HR #20 tab 07/01/21 Pantoprazole [Protonix] 40 mg PO DAILY 30 Days #30 tab 07/01/21 Sucralfate [Carafate] 1 gm PO BID 10 Days #20 ml 07/01/21 Allergies Allergy/AdvReac Type Severity Reaction Status Date / Time No Known Allergies Allergy Verified 06/30/21 22:01 Review of Systems ROS Statement: Those systems with pertinent positive or pertinent negative responses have been documented in the HPI. ROS Other: All systems not noted in ROS Statement are negative. Past Medical History Past Medical History: No Reported History Additional Past Medical History / Comment(s): Chronic low back pain History of Any Multi-Drug Resistant Organisms: None Reported Past Surgical History: No Surgical Hx Reported Additional Past Surgical History / Comment(s): ulcer Past Anesthesia/Blood Transfusion Reactions: Unable to Obtain Additional Past Anesthesia/Blood Transfusion Reaction / Comment(s): Pt has never had surgery Past Psychological History: No Psychological Hx Reported Smoking Status: Current every day smoker Past Alcohol Use History: None Reported Past Drug Use History: Marijuana - Past Family History Father History Unknown: Yes Additional Family Medical History / Comment(s): Pt has not had contact with his father for years. Mother History Unknown: Yes Additional Family Medical History / Comment(s): Pt has not had contact with his mother in 20 yrs. General Exam - General Exam Comments Initial Comments: Patient in no significant distress. Vital signs stable, patient afebrile. Patient does not appear to be ill or toxic. Limitations: no limitations General appearance: alert, in no apparent distress Head exam: Present: atraumatic, normocephalic, normal inspection Eye exam: Present: normal appearance, PERRL, EOMI. Absent: scleral icterus, conjunctival injection, periorbital swelling ENT exam: Present: normal exam, mucous membranes moist Neck exam: Present: normal inspection. Absent: tenderness, meningismus, lymphadenopathy Respiratory exam: Present: normal lung sounds bilaterally. Absent: respiratory distress, wheezes, rales, rhonchi, stridor Cardiovascular Exam: Present: regular rate, normal rhythm, normal heart sounds. Absent: systolic murmur, diastolic murmur, rubs, gallop, clicks GI/Abdominal exam: Present: soft, tenderness, normal bowel sounds, other (Mild, generalized tenderness. No rebound or percussion tenderness.). Absent: distended, guarding, rebound, rigid Extremities exam: Present: normal inspection, full ROM, normal capillary refill. Absent: tenderness, pedal edema, joint swelling, calf tenderness Back exam: Present: normal inspection Neurological exam: Present: alert, oriented X3, CN II-XII intact Psychiatric exam: Present: normal affect, normal mood Skin exam: Present: warm, dry, intact, normal color. Absent: rash Course Vital Signs 06/30/21 06/30/21 07/01/21 17:10 23:01 01:07 Temperature 99.5 F Pulse Rate 93 89 61 Respiratory 20 20 16 Rate Blood Pressure 142/99 178/93 180/82 O2 Sat by Pulse 98 96 98 Oximetry - Reevaluation(s) Reevaluation #1: 07/01/21 00:17 Patient reevaluated and is resting comfortably in bed. Patient failed the first by mouth fluid challenge, computed tomography scan shows a hemangioma with no other acute abnormalities. Patient's hemoglobin is stable. He has had no vomiting since the medical pride. We'll try a by mouth fluid challenge. Plan for discharge with clear liquids if the patient has success. We'll need to start the patient on proton pump inhibitor. Medical Decision Making - Medical Decision Making Differential diagnosis includes gastritis and bleeding, pancreatitis, gastritis, perforated peptic ulcer disease, gallbladder or liver disease. If this is less likely be cardiopulmonary as the patient has no chest pain and no respiratory symptoms. There is no fever. Unlikely be infectious etiology however this is still within the differential. The case was discussed in detail with ED attending physician. Presentation, findings, treatment plan discussed in detail. Computed tomography scan shows a hemangioma with no other acute findings. Patient had no recurrent vomiting here. Patient did give a history of vomiting which was mostly bilious but did have a few flecks of red blood in it at times. Patient does have a history of perforated peptic ulcer which was repaired here in 2019. Patient has previously been treated by Dr. England. Patient was able to hold down fluids here in the ER. Patient was rechecked several times. Patient was hemodynamic stable in fact had an elevated blood pressure. Patient was much improved. Patient was offered admission and states that he feels well enough to go home. I have a call his surgeon as regular physician tomorrow. Patient will need to stay on pantoprazole daily. Clear liquid diet for 24 hours. - Lab Data Result diagrams: 06/30/21 18:06 06/30/21 18:06 Lab Results 06/30/21 06/30/21 06/30/21 Range/Units 18:06 18:06 21:11 WBC 8.9 (3.8-10.6) k/uL RBC 5.85 (4.30-5.90) m/uL Hgb 17.7 H (13.0-17.5) gm/dL Hct 52.7 (39.0-53.0) % MCV 90.2 (80.0-100.0) fL MCH 30.3 (25.0-35.0) pg MCHC 33.6 (31.0-37.0) g/dL RDW 13.7 (11.5-15.5) % Plt Count 217 (150-450) k/uL MPV 9.2 Neutrophils % 82 % Lymphocytes % 10 % Monocytes % 6 % Eosinophils % 1 % Basophils % 0 % Neutrophils # 7.3 (1.3-7.7) k/uL Lymphocytes # 0.9 L (1.0-4.8) k/uL Monocytes # 0.5 (0-1.0) k/uL Eosinophils # 0.1 (0-0.7) k/uL Basophils # 0.0 (0-0.2) k/uL PT 10.7 (9.0-12.0) sec INR 1.0 (<1.2) Sodium 138 (137-145) mmol/L Potassium 4.0 (3.5-5.1) mmol/L Chloride 98 (98-107) mmol/L Carbon Dioxide 26 (22-30) mmol/L Anion Gap 14 mmol/L BUN 23 H (9-20) mg/dL Creatinine 0.93 (0.66-1.25) mg/dL Est GFR (CKD-EPI)AfAm >90 (>60 ml/min/1.73 sqM) Est GFR (CKD-EPI)NonAf >90 (>60 ml/min/1.73 sqM) Glucose 133 H (74-99) mg/dL Calcium 10.6 H (8.4-10.2) mg/dL Total Bilirubin 1.1 (0.2-1.3) mg/dL AST 27 (17-59) U/L ALT 22 (4-49) U/L Alkaline Phosphatase 98 (38-126) U/L Troponin I (0.000-0.034) ng/mL Total Protein 8.6 H (6.3-8.2) g/dL Albumin 5.0 (3.5-5.0) g/dL Amylase 83 (30-110) U/L Lipase 99 (23-300) U/L Urine Color Urine Appearance (Clear) Urine pH (5.0-8.0) Ur Specific [place] (1.001-1.035) Urine Protein (Negative) Urine Glucose (UA) (Negative) Urine Ketones (Negative) Urine Blood (Negative) Urine Nitrite (Negative) Urine Bilirubin (Negative) Urine Urobilinogen (<2.0) mg/dL Ur Leukocyte Esterase (Negative) Urine RBC (0-5) /hpf Urine WBC (0-5) /hpf Amorphous Sediment (None) /hpf Hyaline Casts (0-2) /lpf Urine Mucus (None) /hpf Blood Type Blood Type Recheck Bld Type Recheck Status Antibody Screen Spec Expiration Date 06/30/21 06/30/21 06/30/21 Range/Units 21:11 21:11 22:30 WBC (3.8-10.6) k/uL RBC (4.30-5.90) m/uL Hgb (13.0-17.5) gm/dL Hct (39.0-53.0) % MCV (80.0-100.0) fL MCH (25.0-35.0) pg MCHC (31.0-37.0) g/dL RDW (11.5-15.5) % Plt Count (150-450) k/uL MPV Neutrophils % % Lymphocytes % % Monocytes % % Eosinophils % % Basophils % % Neutrophils # (1.3-7.7) k/uL Lymphocytes # (1.0-4.8) k/uL Monocytes # (0-1.0) k/uL Eosinophils # (0-0.7) k/uL Basophils # (0-0.2) k/uL PT (9.0-12.0) sec INR (<1.2) Sodium (137-145) mmol/L Potassium (3.5-5.1) mmol/L Chloride (98-107) mmol/L Carbon Dioxide (22-30) mmol/L Anion Gap mmol/L BUN (9-20) mg/dL Creatinine (0.66-1.25) mg/dL Est GFR (CKD-EPI)AfAm (>60 ml/min/1.73 sqM) Est GFR (CKD-EPI)NonAf (>60 ml/min/1.73 sqM) Glucose (74-99) mg/dL Calcium (8.4-10.2) mg/dL Total Bilirubin (0.2-1.3) mg/dL AST (17-59) U/L ALT (4-49) U/L Alkaline Phosphatase (38-126) U/L Troponin I <0.012 (0.000-0.034) ng/mL Total Protein (6.3-8.2) g/dL Albumin (3.5-5.0) g/dL Amylase (30-110) U/L Lipase (23-300) U/L Urine Color Yellow Urine Appearance Turbid (Clear) Urine pH 7.5 (5.0-8.0) Ur Specific [place] 1.024 (1.001-1.035) Urine Protein 1+ H (Negative) Urine Glucose (UA) Negative (Negative) Urine Ketones 1+ H (Negative) Urine Blood Negative (Negative) Urine Nitrite Negative (Negative) Urine Bilirubin Negative (Negative) Urine Urobilinogen <2.0 (<2.0) mg/dL Ur Leukocyte Esterase Negative (Negative) Urine RBC 2 (0-5) /hpf Urine WBC 2 (0-5) /hpf Amorphous Sediment Moderate H (None) /hpf Hyaline Casts 11 H (0-2) /lpf Urine Mucus Many H (None) /hpf Blood Type O Negative Blood Type Recheck O Neg Bld Type Recheck Status No Antibody Screen NEGATIVE Spec Expiration Date 07/03/20212310 - EKG Data EKG Comments: EKG reveals sinus bradycardia with a rate of 58. Right axis deviation. No acute ST or T-wave changes. Read by the ED attending physician, Dr. Ramey Normal intervals. - Radiology Data Radiology results: report reviewed, image reviewed Disposition Clinical Impression: Abdominal pain, Acute gastritis with bleeding, Dehydration, Hypertension, poor control, Hemangioma Disposition: HOME SELF-CARE Condition: Good Instructions (If sedation given, give patient instructions): Gastritis (ED) Additional Instructions: Call your regular physician and the general surgeon tomorrow to schedule follow- up appointment. Take the Protonix as directed. He need to take this medication every day. Return to the ER immediately if any symptoms worsen or any other problems arise. Adhere to a clear liquid diet for the next 24 hours. He also benign-appearing cyst on your liver consistent with a hemangioma. This may need to be monitored over time. Prescriptions: Sucralfate [Carafate] 1 gm PO BID 10 Days #20 ml Pantoprazole [Protonix] 40 mg PO DAILY 30 Days #30 tab Ondansetron [Zofran ODT] 4 mg PO Q8HR #20 tab Is patient prescribed a controlled substance at d/c from ED?: No Referrals: Arsh Lewis MD [Primary Care Provider] - 1-2 days Kev England MD [STAFF PHYSICIAN] - 1-2 days Time of Disposition: 01:26
[2021-06-30] MEDS ORDERED: PANTOPRAZOLE 40 MG/10 ML VIAL IVP STA (21:06)
--- NOTE | 2021-06-30 21:29 | XR ---
EXAMINATION TYPE: XR chest 1V portable DATE OF EXAM: 06/30/2021 COMPARISON: 07/10/2019 HISTORY: Abdominal pain TECHNIQUE: Single frontal view of the chest is obtained. FINDINGS: There is no focal air space opacity, pleural effusion, or pneumothorax seen. The cardiac silhouette size is within normal limits. The osseous structures are intact. IMPRESSION: No acute process.
[2021-06-30] MEDS ORDERED: diphenhydrAMINE 50 MG/ML 1 ML VIAL IVP STA (22:41)
[2021-06-30] MEDS ORDERED: METOCLOPRAMIDE 5 MG/ML 2 ML VIAL IVP STA (22:41)
[2021-06-30 22:43] LABS: Prothrombin Time 10.7 sec (9.0-12.0)
[2021-06-30 23:00] LABS: Amorphous Sediment,Urine Moderate /hpf; Appearance,Urine Turbid (Clear); Bilirubin,Urine Negative (Negative); Blood,Urine Negative (Negative); Color,Urine Yellow; Glucose,Urine (UA) Negative (Negative); Hyaline Casts,Urine 11 /lpf (0-2); Ketones,Urine 1+ (Negative); Leukocyte Esterase,Urine Negative (Negative); Mucus,Urine Many /hpf; Nitrite,Urine Negative (Negative); PH, Urine 7.5 (5.0-8.0); Protein,Urine 1+ (Negative); RBC,Urine 2 /hpf (0-5); Specific Gravity,Urine 1.024 (1.001-1.035); Urobilinogen,Urine <2.0 mg/dL (<2.0); WBC,Urine 2 /hpf (0-5)
--- NOTE | 2021-06-30 23:46 | CT ---
EXAMINATION TYPE: CT abdomen pelvis w con DATE OF EXAM: 06/30/2021 COMPARISON: 07/07/2019 HISTORY: Abdominal pain, history of peptic ulcer disease. prior on PACS. CT DLP: 688.7 mGycm Automated exposure control for dose reduction was used. CONTRAST: Performed with IV Contrast, patient injected with 100ml mL of Isovue 300. Images obtained from the diaphragm to the floor the pelvis with IV contrast. Lung bases are clear. There is no pleural effusion. Heart size is normal. There is no pericardial eff usion There is a 3 cm irregular enhancing area anterior right lobe of the liver that is probably hemangioma . Spleen is intact. Stomach is intact. Gallbladder appears normal. There is no evidence of pancreatic mass. There is no adrenal mass. Kidneys show satisfactory contrast opacification. There is no hydronephrosi s. Bladder distends smoothly. There is no inguinal hernia. There is no free fluid in the pelvis. Ther e is some prostatic calcification. There is no mesenteric edema. There is no ascites or free air. There is no bowel obstruction. The lumbar vertebrae have normal spacing and alignment. Posterior elements are intact. There is no co mpression fracture. Bony pelvis is intact. Hip joints appear normal. Appendix is not seen. No sign of thickened appendix. IMPRESSION: Hemangioma in the anterior right lobe of the liver without change. No acute abnormality within the ab domen and pelvis. No adverse change compared to old exam. There is clearing of the constipation moshe red to old exams
[2021-07-01] MEDS ORDERED: SUCRALFATE 1 GM TAB PO STA (00:16)
[2021-07-01] MEDS ORDERED: MORPHINE SULFATE 4 MG/ML SYRINGE IV STA (00:16)
[2021-07-01] MEDS ORDERED: ONDANSETRON 4 MG/2 ML VIAL IVP STA (00:16)
[2021-07-01] MEDS ORDERED: LACTATED RINGERS 1,000 ML IV ONE (01:04)
[2021-07-01 01:08] VITALS: BP 180/82; PULSE 61; RESP 16
[2021-07-01] MEDS ORDERED: PANTOPRAZOLE 40 MG/10 ML VIAL IVP SCH (09:00)
== END 2021-07-01 02:49 | disposition home or self-care (01) ==
LOC: EC 16:43
DX: K29.01 Acute gastritis with bleeding (principal); E86.0 Dehydration; I10 Essential (primary) hypertension; D18.00 Hemangioma unspecified site; F17.200 Nicotine dependence, unspecified, uncomplicated; F12.90 Cannabis use, unspecified, uncomplicated; Z87.11 Personal history of peptic ulcer disease
CPT/HCPCS: 99284; 96374; 96375 ×4; 96376; 96361 ×2; 36415; 86900; 86901; 80053; 82150; 83690; 84484; 85025; 85610; 86850; 81001; 71045; 74018; 74177; J2270; J1200; J2765; J2405 ×2; C9113; Q9967